=== PATIENT | male | born 1975 | race Hispanic/Latino ===

== ENCOUNTER 2018-11-10 07:16 | Emergency (ER) | payer SELFPAY ==
[2018-11-10] MEDS ORDERED: DEXAMETHASONE 4 MG/ML VIAL ONE (08:39)
[2018-11-10] MEDS ORDERED: KETOROLAC 30 MG/ML INJ ONE (08:39)
--- NOTE | 2018-11-10 08:46 | RAD REPORT ---
EXAM DESCRIPTION: CT - C Spine Wo Con - 11/10/2018 8:31 am CLINICAL HISTORY: PAIN Radiculopathy COMPARISON: No comparisons FINDINGS: The cervical vertebral body heights and disc spaces are maintained. No evidence of acute cervical spine fracture or subluxation. Prevertebral soft tissues are normal in thickness. IMPRESSION: Unremarkable examination. All CT scans are performed using dose optimization technique as appropriate and may include automated exposure control or mA/KV adjustment according to patient size.
--- NOTE | 2018-11-10 08:57 | ER ---
Nurse's Notes [facility] Name: Kelechi Gandhi Age: 43 yrs Sex: Male : 1975 Arrival Date: 11/10/2018 Time: 07:18 Bed 17 Private MD: Out, [facility] Diagnosis: Strain of muscle, fascia and tendon at neck level;Radiculopathy, cervicothoracic region;Type 2 diabetes mellitus Presentation: 11/10 07:24 Presenting complaint: Neck and upper back pain x 3 weeks, worse with cough and hb sneezing. Transition of care: patient was not received from another setting of care. Onset of symptoms is unknown. Risk Assessment: Do you want to hurt yourself or someone else? Patient reports no desire to harm self or others. Initial Sepsis Screen: Does the patient meet any 2 criteria? No. Patient's initial sepsis screen is negative. Does the patient have a suspected source of infection? No. Patient's initial sepsis screen is negative. Care prior to arrival: None. 07:24 Method Of Arrival: Ambulatory hb 07:24 Acuity: RUEL 4 hb Triage Assessment: 07:25 General: Appears in no apparent distress. Behavior is calm, cooperative. Pain: Pain hb currently is 9 out of 10 on a pain scale. EENT: No signs and/or symptoms were reported regarding the EENT system. Neuro: Level of Consciousness is awake, alert, obeys commands, Oriented to person, place, time, situation. Cardiovascular: Capillary refill < 3 seconds Patient's skin is warm and dry. Respiratory: Airway is patent Respiratory effort is even, unlabored, Respiratory pattern is regular, symmetrical, Breath sounds are clear bilaterally. GI: No signs and/or symptoms were reported involving the gastrointestinal system. : No signs and/or symptoms were reported regarding the genitourinary system. Derm: Skin is intact, is healthy with good turgor. Musculoskeletal: Circulation, motion, and sensation intact. Reports neck and upper back pain. Historical: - Allergies: 07:23 Lisinopril; hb - Home Meds: 07:23 Metoprolol Tartrate Oral [Active]; Metformin Oral [Active]; hb - PMHx: 07:23 Hypertension; High Cholesterol; Diabetes - NIDDM; hb - PSHx: 07:23 None; hb - Immunization history:: Adult Immunizations up to date. - Social history:: Smoking status: Patient uses tobacco products, denies chronic smoking, but will smoke occasionally. - Ebola Screening: : No symptoms or risks identified at this time. Screenin:23 Abuse screen: Denies threats or abuse. Denies injuries from another. Nutritional hb screening: No deficits noted. Tuberculosis screening: No symptoms or risk factors identified. Fall Risk None identified. Assessment: 07:38 General: see triage assessment. hb 08:30 Reassessment: Patient appears in no apparent distress at this time. No changes from hb previously documented assessment. Patient and/or family updated on plan of care and expected duration. Pain level reassessed. Patient is alert, oriented x 3, equal unlabored respirations, skin warm/dry/pink. Vital Signs: 07:25 BP 181 / 103; Pulse 74; Resp 16; Temp 98.5; Pulse Ox 100% on R/A; Pain 9/10; hb 07:26 Pulse Ox 98% on R/A; Weight 81.65 kg; Height 5 ft. 4 in. (162.56 cm); ss 08:30 BP 158 / 104; Pulse 74; Resp 18; Pulse Ox 98% on R/A; dh3 07:26 Body Mass Index 30.90 (81.65 kg, 162.56 cm) ED Course: 07:18 Patient arrived in ED. dl4 07:18 Out, [facility] is Private Physician. dl4 07:21 Cathleen Bui, RN is Primary Nurse. hb 07:23 Arm band placed on. EKG completed in triage. Results shown to MD. EKG completed in hb triage. Results shown to MD. 07:23 Patient has correct armband on for positive identification. Bed in low position. Call hb light in reach. Side rails up X 1. 07:25 Triage completed. hb 07:36 Uday Wolf MD is Attending Physician. wanda 08:31 CT C Spine In Process Unspecified. EDMS 09:21 No provider procedures requiring assistance completed. Patient did not have IV access hb during this emergency room visit. Administered Medications: 08:44 Drug: TORadol 60 mg Route: IM; Site: left deltoid; hb 09:30 Follow up: Response: No adverse reaction hb 08:44 Drug: Decadron 10 mg Route: IM; Site: right deltoid; hb 09:30 Follow up: Response: No adverse reaction hb Point of Care Testing: Blood Glucose: 08:36 Blood Glucose: 105 mg/dL; dh3 Ranges: Outcome: 08:57 Discharge ordered by . wanda 09:21 Discharged to home ambulatory, with family. hb 09:21 Condition: stable 09:21 Discharge instructions given to patient, Instructed on discharge instructions, follow up and referral plans. medication usage, Demonstrated understanding of instructions, follow-up care, medications, Prescriptions given X 4. 09:22 Patient left the ED. hb Signatures: Dispatcher [employer] EDMS Uday Wolf MD MD cha Smirch, Shelby, RN RN Cathleen Bui RN RN Lay Covarrubias 3 Shaheed Elmore dl4 Corrections: (The following items were deleted from the chart) 07:24 07:23 Social history: Smoking status: Patient/guardian denies using tobacco, hb hb 07:38 07:25 Musculoskeletal: Circulation, motion, and sensation intact. Reports low back pain hb hb
--- NOTE | 2018-11-10 08:57 | EDPHYS ---
Physician Documentation [facility] Name: Kelechi Gandhi Age: 43 yrs Sex: Male : 1975 Arrival Date: 11/10/2018 Time: 07:18 Bed 17 Private MD: Out, [facility] ED Physician Uday Wolf HPI: 11/10 08:16 This 43 yrs old Male presents to ER via Ambulatory with complaints of Back wanda Pain. 08:16 The patient presents with pain that is acute. wanda Historical: - Allergies: 07:23 Lisinopril; hb - Home Meds: 07:23 Metoprolol Tartrate Oral [Active]; Metformin Oral [Active]; hb - PMHx: 07:23 Hypertension; High Cholesterol; Diabetes - NIDDM; hb - PSHx: 07:23 None; hb - Immunization history:: Adult Immunizations up to date. - Social history:: Smoking status: Patient uses tobacco products, denies chronic smoking, but will smoke occasionally. - Ebola Screening: : No symptoms or risks identified at this time. ROS: 08:17 Constitutional: Negative for fever, chills, and weight loss, Eyes: Negative for injury, wanda pain, redness, and discharge, ENT: Negative for injury, pain, and discharge, Cardiovascular: Negative for chest pain, palpitations, and edema, Respiratory: Negative for shortness of breath, cough, wheezing, and pleuritic chest pain, Abdomen/GI: Negative for abdominal pain, nausea, vomiting, diarrhea, and constipation, Back: Negative for injury and pain, : Negative for injury, bleeding, discharge, and swelling, MS/Extremity: Negative for injury and deformity, Skin: Negative for injury, rash, and discoloration, Neuro: Negative for headache, weakness, numbness, tingling, and seizure, Psych: Negative for depression, anxiety, suicide ideation, homicidal ideation, and hallucinations, Allergy/Immunology: Negative for hives, rash, and allergies, Endocrine: Negative for neck swelling, polydipsia, polyuria, polyphagia, and marked weight changes, Hematologic/Lymphatic: Negative for swollen nodes, abnormal bleeding, and unusual bruising. 08:17 Neck: Positive for pain with movement, pain at rest. Exam: 08:17 Constitutional: This is a well developed, well nourished patient who is awake, alert, wanda and in no acute distress. Head/Face: Normocephalic, atraumatic. Eyes: Pupils equal round and reactive to light, extra-ocular motions intact. Lids and lashes normal. Conjunctiva and sclera are non-icteric and not injected. Cornea within normal limits. Periorbital areas with no swelling, redness, or edema. ENT: Nares patent. No nasal discharge, no septal abnormalities noted. Tympanic membranes are normal and external auditory canals are clear. Oropharynx with no redness, swelling, or masses, exudates, or evidence of obstruction, uvula midline. Mucous membranes moist. Chest/axilla: Normal chest wall appearance and motion. Nontender with no deformity. No lesions are appreciated. Cardiovascular: Regular rate and rhythm with a normal S1 and S2. No gallops, murmurs, or rubs. Normal PMI, no JVD. No pulse deficits. Respiratory: Lungs have equal breath sounds bilaterally, clear to auscultation and percussion. No rales, rhonchi or wheezes noted. No increased work of breathing, no retractions or nasal flaring. Abdomen/GI: Soft, non-tender, with normal bowel sounds. No distension or tympany. No guarding or rebound. No evidence of tenderness throughout. Back: No spinal tenderness. No costovertebral tenderness. Full range of motion. Male : Normal genitalia with no discharge or lesions. Skin: Warm, dry with normal turgor. Normal color with no rashes, no lesions, and no evidence of cellulitis. MS/ Extremity: Pulses equal, no cyanosis. Neurovascular intact. Full, normal range of motion. Neuro: Awake and alert, GCS 15, oriented to person, place, time, and situation. Cranial nerves II-XII grossly intact. Motor strength 5/5 in all extremities. Sensory grossly intact. Cerebellar exam normal. Normal gait. Psych: Awake, alert, with orientation to person, place and time. Behavior, mood, and affect are within normal limits. 08:17 Neck: External neck: is normal, C-spine: 08:17 Neck: C-spine: vertebral tenderness, that is mild, appreciated at C4, C5, C6 and C7. [facility] Vital Signs: 07:25 BP 181 / 103; Pulse 74; Resp 16; Temp 98.5; Pulse Ox 100% on R/A; Pain 9/10; hb 07:26 Pulse Ox 98% on R/A; Weight 81.65 kg; Height 5 ft. 4 in. (162.56 cm); ss 08:30 BP 158 / 104; Pulse 74; Resp 18; Pulse Ox 98% on R/A; dh3 07:26 Body Mass Index 30.90 (81.65 kg, 162.56 cm) ss MDM: 07:37 Patient medically screened. [facility] 08:17 Data reviewed: vital signs, nurses notes, lab test result(s), radiologic studies, CT wanda scan. 11/10 08:37 Order name: Glucose, Ancillary Testing; Complete Time: 08:55 EDMS 11/10 08:16 Order name: CT C Spine; Complete Time: 08:55 wanda 11/10 08:16 Order name: Blood Glucose Level; Complete Time: 08:36 [facility] Administered Medications: 08:44 Drug: TORadol 60 mg Route: IM; Site: left deltoid; hb 09:30 Follow up: Response: No adverse reaction hb 08:44 Drug: Decadron 10 mg Route: IM; Site: right deltoid; hb 09:30 Follow up: Response: No adverse reaction hb Point of Care Testing: Blood Glucose: 08:36 Blood Glucose: 105 mg/dL; dh3 Ranges: Critical Glucose Levels:Adult <50 mg/dl or >400 mg/dl <40 mg/dl or >180 mg/dl Disposition: 11/10/18 08:57 Discharged to Home. Impression: Strain of muscle, fascia and tendon at neck level, Radiculopathy, cervicothoracic region, Type 2 diabetes mellitus. - Condition is Stable. - Discharge Instructions: Cervical Radiculopathy, Muscle Strain, Cervical Sprain, [id number], Cervical Radiculopathy, [id number], Radicular Pain. - Prescriptions for Ibuprofen 600 mg Oral Tablet - take 1 tablet by ORAL route every 8 hours As needed take with food; 21 tablet. Tylenol- Codeine #3 300-30 mg Oral Tablet - take 2 tablet by ORAL route every 6 hours As needed; 30 tablet. Medrol (Dirk) 4 mg Oral Tablets, Dose Pack - take 1 tablet by ORAL route as directed - follow package instructions; 1 packet. Cyclobenzaprine 5 mg Oral Tablet - take 1 tablet by ORAL route 3 times per day As needed; 15 tablet. - Medication Reconciliation Form, Thank You Letter, Antibiotic Education, Prescription Opioid Use, Work release form form. - Follow up: Private Physician; When: 2 - 3 days; Reason: Recheck today's complaints, Continuance of care, Re-evaluation by your physician. - Problem is new. - Symptoms have improved. Signatures: Dispatcher [employer] EDUday Roberts MD MD cha Baxter, Heather, RN RN hb Corrections: (The following items were deleted from the chart) 07:24 07:23 Social history: Smoking status: Patient/guardian denies using tobacco, hb hb 09:22 08:57 11/10/2018 08:57 Discharged to Home. Impression: Strain of muscle, fascia and hb tendon at neck level; Radiculopathy, cervicothoracic region; Type 2 diabetes mellitus. Condition is Stable. Discharge Instructions: Cervical Radiculopathy, Muscle Strain, Cervical Sprain, [id number], Cervical Radiculopathy, [id number], Radicular Pain. Prescriptions for Ibuprofen 600 mg Oral Tablet - take 1 tablet by ORAL route every 8 hours As needed take with food; 21 tablet, Tylenol-Codeine #3 300-30 mg Oral Tablet - take 2 tablet by ORAL route every 6 hours As needed; 30 tablet, Medrol (Dirk) 4 mg Oral Tablets, Dose Pack - take 1 tablet by ORAL route as directed - follow package instructions; 1 packet, Cyclobenzaprine 5 mg Oral Tablet - take 1 tablet by ORAL route 3 times per day As needed; 15 tablet. and Forms are Medication Reconciliation Form, Thank You Letter, Antibiotic Education, Prescription Opioid Use. Follow up: Private Physician; When: 2 - 3 days; Reason: Recheck today's complaints, Continuance of care, Re-evaluation by your physician. Problem is new. Symptoms have improved. wanda
== END 2018-11-10 09:22 | disposition home or self-care (01) ==
LOC: ER 07:16
DX: S16.1XXA Strain of muscle, fascia and tendon at neck level, initial encounter (principal); X58.XXXA Exposure to other specified factors, initial encounter; M54.13 Radiculopathy, cervicothoracic region; E11.9 Type 2 diabetes mellitus without complications; Z88.8 Allergy status to other drugs, medicaments and biological substances
CPT/HCPCS: 72125; 82962; 96372; 99283

== ENCOUNTER 2021-03-05 12:45 | Emergency (ER) | payer SELFPAY ==
--- OUTSIDE RECORDS SUMMARY | 2021-03-05 12:58 | XMS REPORT | Continuity of Care Document ---
:1975 Author Organization [facility] t Address [address] [place] [address] Care Team Providers Name Role Phone Arnold YBARRA, T Attending Clinician Fritz YBARRA Attending Clinician Ivonne YBARRA, J Admitting Clinician Problems This patient has no known problems. Allergies, Adverse Reactions, Alerts This patient has no known allergies or adverse reactions. Medications This patient has no known medications. Procedures This patient has no known procedures. Encounters Start End Encounter Admission Attending Care Care Encounter Source Date/Time Date/Time Type Type Clinicians Facility Department ID 2021-02-26 2021-02-26 Emergency Arnold, TRAUMA [id number] 17:14:00 17:50:00 Alanna [facility] [id number] 2021-02-26 2021-02-26 Emergency Fritz [facility] [id number] 12:54:00 16:21:00 Raymundo Castro [id number] [place] [id number] [place] [id number] Results This patient has no known results.
--- NOTE | 2021-03-05 13:08 | RAD REPORT ---
EXAM DESCRIPTION: CT - Ct Stroke Brain Wo Cont - 03/05/2021 12:59 pm CLINICAL HISTORY: Numbness left finger and thumb COMPARISON: None. TECHNIQUE: Axial 5 mm thick images of the head were obtained without IV contrast. All CT scans are performed using dose optimization technique as appropriate and may include automated exposure control or mA/KV adjustment according to patient size. FINDINGS: No acute intracranial hemorrhage. No mass effect or midline shift. No acute large vascular territory infarct are identified. No mastoid effusion. Paranasal sinuses are well aerated. IMPRESSION: No acute intracranial abnormality. Discussed with Uday Mcmillan at 1300 on 03/05/21.
[2021-03-05 13:12] LABS: Absolute Lymphocytes (CBC) 2.3 K/uL (0.7-4.9); Basophils % 0.4 % (0-1.3); Hematocrit 37.9 % (39.6-49.0); Lymphocytes % 28.3 % (15.3-44.8); MPV 8.4 fL (7.6-11.3)
[2021-03-05 13:16] LABS: Protime INR 1.02
[2021-03-05] MEDS ORDERED: FOLIC ACID 5 MG/ML VIAL ONE (13:25)
[2021-03-05] MEDS ORDERED: NA CHLORIDE 0.9% 1,000 ML ONE (13:26)
--- NOTE | 2021-03-05 13:28 | RAD REPORT ---
EXAM DESCRIPTION: RAD - Chest Single View - 03/05/2021 1:23 pm CLINICAL HISTORY: Cough COMPARISON: None. TECHNIQUE: AP portable chest image was obtained . FINDINGS: Lungs are clear. Heart and vasculature are normal. No measurable pleural effusion and no p neumothorax. No gross bony abnormality seen. IMPRESSION: No acute cardiopulmonary process.
[2021-03-05 13:37] LABS: ALT/SGPT 32 U/L (12-78); AST/SGOT 19 U/L (15-37); Albumin 4.1 g/dL (3.4-5.0); Alkaline Phosphatase 70 U/L (45-117); BUN Blood Urea Nitrogen 12 mg/dL (7-18); Bicarbonate 24 mmol/L (21-32); Bilirubin Direct < 0.1 mg/dL (0-0.2); Bilirubin Total 0.4 mg/dL (0.2-1.0); Glucose Level 107 mg/dL (74-106); Magnesium 2.4 mg/dL (1.8-2.4); NT PRO-BNP 37 pg/mL (<125); Potassium 4.1 mmol/L (3.5-5.1); Sodium Level 136 mmol/L (136-145); Troponin (Emerg Dept Use Only) < 0.02 ng/mL (0.0-0.045)
[2021-03-05] MEDS ORDERED: ASPIRIN 81 MG CHEWABLE TABLET ONE (13:44)
--- NOTE | 2021-03-05 13:52 | RAD REPORT ---
CLINICAL HISTORY: TIA Pain, TIA COMPARISON: None TECHNIQUE: CT angiogram of the head was obtained. All CT scans are performed using dose optimization technique as appropriate and may include automated exposure control or mA/KV adjustment according to patient size. FINDINGS: The basilar, internal carotid, anterior cerebral, middle cerebral and posterior cerebral a rteries are normal caliber. An aneurysm is not seen. A significant stenosis is not noted. IMPRESSION: Unremarkable CT angiogram head. EXAM DESCRIPTION: CTHead angio03/05/2021 1:38 pm CTA head
--- NOTE | 2021-03-05 13:55 | RAD REPORT ---
EXAM DESCRIPTION: CT - Neck Angio - 03/05/2021 1:38 pm CLINICAL HISTORY: CVA COMPARISON: C Spine Wo Con dated 11/10/2018 TECHNIQUE: CT angiography of the neck vessels was performed with MIPs. All CT scans are performed using dose optimization technique as appropriate and may include automated exposure control or mA/KV adjustment according to patient size. FINDINGS: A left aortic arch is identified with normal three vessel configuration of the great vesse ls. No significant flow abnormality is seen of the common carotid bilaterally. No significant stenosis is identified involving the cervical segments of both internal carotid arteri es. Normal flow is seen within both vertebral arteries. Stranding is present in the left supraclavicular region and base of the neck. IMPRESSION: No significant flow abnormality of the neck vessels is identified.
--- NOTE | 2021-03-05 14:06 | RAD REPORT ---
EXAM DESCRIPTION: MRI - Brain Wo Cont - 03/05/2021 1:59 pm CLINICAL HISTORY: DIZZINESS, right hand numbness, numbness of the tongue COMPARISON: Ct Stroke Brain Wo Cont dated 03/05/2021 TECHNIQUE: Sagittal T1-weighted images were obtained along with axial PD, heavily T2-weighted and T2 -FLAIR images. Axial DWI and ADC mapping sequences were also obtained along with coronal heavily T2-w eighted images. Coronal T2 hemo sequence obtained. FINDINGS: No intracranial hemorrhage, mass or acute infarction. There is no edema or shift of midlin e structures. No extra-axial fluid collections. Wang-matter/white matter junction is preserved. Signa l voids are seen as a normal finding in the major intracranial vessels. Ventricles are normal. There are no atrophy or chronic ischemic changes identifiable. No evidence for demyelinization or other kelly spicious brain parenchymal process. No globe or orbital content abnormalities. No sella or supra sella abnormality. Mastoid air cells and paranasal sinuses are clear. IMPRESSION: Negative non-contrast MRI of the Brain.
[2021-03-05 14:12] LABS: Urine Blood Negative (Negative); Urine Glucose Negative (Negative); Urine Protein Negative (Negative); Urine pH 6.5 (5.0-7.0)
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
--- NOTE | 2021-03-05 14:43 | EDPHYS ---
Physician Documentation [facility] Name: Kelechi Gandhi Age: 45 yrs Sex: Male : 1975 Arrival Date: 03/05/2021 Time: 12:46 Bed 3 Private MD: ED Physician Uday Wolf HPI: 03/05 13:19 This 45 yrs old Male presents to ER via Wheelchair with complaints of Numbness wanda - fingers/tongue, Dizziness. 13:19 The patient's problem is reported as paresthesias, in right side of face, in left side wanda of face. Onset: The symptoms/episode began/occurred just prior to arrival. Duration: The episode is continuous. Context: the episode(s) was witnessed, by family. The symptoms are alleviated by nothing. The symptoms are aggravated by nothing. Associated signs and symptoms: The patient has no apparent associated signs or symptoms. Severity of symptoms: At their worst the symptoms were mild in the emergency department the symptoms are unchanged. Patient's baseline: Neuro:. The patient has not experienced similar symptoms in the past. Historical: - Allergies: 13:00 Lisinopril; sv - PMHx: 13:00 Diabetes - NIDDM; High Cholesterol; Hypertension; sv - Family history:: not pertinent. ROS: 13:19 Constitutional: Negative for fever, chills, and weight loss, Eyes: Negative for injury, wanda pain, redness, and discharge, ENT: Negative for injury, pain, and discharge, Neck: Negative for injury, pain, and swelling, Cardiovascular: Negative for chest pain, palpitations, and edema, Respiratory: Negative for shortness of breath, cough, wheezing, and pleuritic chest pain, Abdomen/GI: Negative for abdominal pain, nausea, vomiting, diarrhea, and constipation, Back: Negative for injury and pain, : Negative for injury, bleeding, discharge, and swelling, MS/Extremity: Negative for injury and deformity, Skin: Negative for injury, rash, and discoloration, Psych: Negative for depression, anxiety, suicide ideation, homicidal ideation, and hallucinations, Allergy/Immunology: Negative for hives, rash, and allergies, Endocrine: Negative for neck swelling, polydipsia, polyuria, polyphagia, and marked weight changes, Hematologic/Lymphatic: Negative for swollen nodes, abnormal bleeding, and unusual bruising. 13:19 Neuro: Negative for altered mental status, dizziness, gait disturbance, headache, hearing loss, loss of consciousness, numbness, seizure activity, speech changes, syncope, near syncope, tingling, tinnitus, tremor, visual changes, weakness, acute changes. Exam: 13:19 Radiologist reports: NEGATIVE wanda 13:19 Constitutional: This is a well developed, well nourished patient who is awake, alert, and in no acute distress. Head/Face: Normocephalic, atraumatic. Eyes: Pupils equal round and reactive to light, extra-ocular motions intact. Lids and lashes normal. Conjunctiva and sclera are non-icteric and not injected. Cornea within normal limits. Periorbital areas with no swelling, redness, or edema. ENT: Nares patent. No nasal discharge, no septal abnormalities noted. Tympanic membranes are normal and external auditory canals are clear. Oropharynx with no redness, swelling, or masses, exudates, or evidence of obstruction, uvula midline. Mucous membranes moist. Neck: Trachea midline, no thyromegaly or masses palpated, and no cervical lymphadenopathy. Supple, full range of motion without nuchal rigidity, or vertebral point tenderness. No Meningismus. Chest/axilla: Normal chest wall appearance and motion. Nontender with no deformity. No lesions are appreciated. Cardiovascular: Regular rate and rhythm with a normal S1 and S2. No gallops, murmurs, or rubs. Normal PMI, no JVD. No pulse deficits. Respiratory: Lungs have equal breath sounds bilaterally, clear to auscultation and percussion. No rales, rhonchi or wheezes noted. No increased work of breathing, no retractions or nasal flaring. Abdomen/GI: Soft, non-tender, with normal bowel sounds. No distension or tympany. No guarding or rebound. No evidence of tenderness throughout. Back: No spinal tenderness. No costovertebral tenderness. Full range of motion. Male : Normal genitalia with no discharge or lesions. Skin: Warm, dry with normal turgor. Normal color with no rashes, no lesions, and no evidence of cellulitis. MS/ Extremity: Pulses equal, no cyanosis. Neurovascular intact. Full, normal range of motion. Neuro: Awake and alert, GCS 15, oriented to person, place, time, and situation. Cranial nerves II-XII grossly intact. Motor strength 5/5 in all extremities. Sensory grossly intact. Cerebellar exam normal. Normal gait. Psych: Awake, alert, with orientation to person, place and time. Behavior, mood, and affect are within normal limits. 13:19 ECG was reviewed by the Attending Physician. Vital Signs: 12:58 Weight 83.91 kg; Height 5 ft. 6 in. (167.64 cm); sv 13:00 BP 172 / 86; Pulse 65; Resp 16 S; Temp 98.3(TE); Pulse Ox 97% on R/A; aa5 14:15 BP 160 / 78; Pulse 63; Resp 16 S; Pulse Ox 98% on R/A; aa5 12:58 Body Mass Index 29.86 (83.91 kg, 167.64 cm) sv NIH Stroke Scale Scores: 12:55 NIHSS Score: 0 aa5 MDM: 12:50 Patient medically screened. wanda 13:24 Differential diagnosis: CVA. Data reviewed: vital signs, nurses notes, lab test wanda result(s), EKG, radiologic studies, CT scan, doppler, MRI. Data interpreted: equipment monitor phototypesetting: rate is 60 beats/min, Pulse oximetry: on room air is 99 %. Test interpretation: by ED physician or midlevel provider: ECG, plain radiologic studies. Counseling: I had a detailed discussion with the patient and/or guardian regarding: the historical points, exam findings, and any diagnostic results supporting the discharge/admit diagnosis, lab results, radiology results. 03/05 12:53 Order name: Basic Metabolic Panel; Complete Time: 14:13 [facility] 03/05 12:53 Order name: CBC with Diff; Complete Time: 14:13 [facility] 03/05 12:53 Order name: LFT's; Complete Time: 14:13 [facility] 03/05 12:53 Order name: Magnesium; Complete Time: 14:13 [facility] 03/05 12:53 Order name: NT PRO-BNP; Complete Time: 14:13 [facility] 03/05 12:53 Order name: PT-INR; Complete Time: 14:13 [facility] 03/05 12:53 Order name: Troponin (emerg Dept Use Only); Complete Time: 14:13 [facility] 03/05 12:53 Order name: XRAY Chest (1 view); Complete Time: 14:13 [facility] 03/05 12:53 Order name: CT Stroke Brain w/o Contrast; Complete Time: 14:13 [facility] 03/05 12:53 Order name: Urine Culture [facility] 03/05 13:12 Order name: Glucose, Ancillary Testing; Complete Time: 14:13 EDMS 03/05 13:18 Order name: CT Neck Angio; Complete Time: 14:13 [facility] 03/05 14:12 Order name: Urine Dipstick-Ancillary; Complete Time: 14:13 EDMS 03/05 12:53 Order name: EKG; Complete Time: 12:54 [facility] 03/05 12:53 Order name: Cardiac monitoring; Complete Time: 13:16 [facility] 03/05 12:53 Order name: EKG - Nurse/Tech; Complete Time: 13:29 [facility] 03/05 12:53 Order name: IV Saline Lock; Complete Time: 13:16 [facility] 03/05 12:53 Order name: Labs collected and sent; Complete Time: 13:16 [facility] 03/05 12:53 Order name: O2 Per Protocol; Complete Time: 13:16 [facility] 03/05 12:53 Order name: O2 Sat Monitoring; Complete Time: 13:16 [facility] 03/05 13:18 Order name: CT Head Angio; Complete Time: 14:13 [facility] 03/05 13:52 Order name: Brain Wo Cont; Complete Time: 14:13 EDMS EC:19 Rate is 60 beats/min. Rhythm is regular. QRS [place] is Normal. CA interval is normal. QRS wanda interval is normal. QT interval is normal. No Q waves. T waves are Normal. No ST changes noted. Clinical impression: Normal ECG and No evidence of ischemia. Interpreted by me. Reviewed by me. Administered Medications: 13:00 Drug: NS 0.9% 1000 ml Route: IV; Rate: 1 bolus; Site: right antecubital; bp 14:00 Follow up: IV Status: Completed infusion; IV Intake: 1000ml aa5 13:00 Drug: foLIC Acid 1 mg Route: IVPB; Site: right antecubital; bp 13:29 Drug: Aspirin Chewable Tablet 324 mg Route: PO; aa5 14:10 Follow up: Response: No adverse reaction aa5 Point of Care Testing: Blood Glucose: 13:05 Blood Glucose: 113 mg/dL; aa5 Ranges: Critical Glucose Levels:Adult <50 mg/dl or >400 mg/dl <40 mg/dl or >180 mg/dl Disposition Summary: 03/05/21 14:42 Discharge Ordered Location: Home wanda Problem: new wanda Symptoms: have improved wanda Condition: Stable wanda Diagnosis - Hyperventilation wanda - Weakness wanda - Type 2 diabetes mellitus with hyperglycemia wanda Followup: wanda - With: Private Physician - When: 2 - 3 days - Reason: Recheck today's complaints, Continuance of care, Re-evaluation by your physician Followup: wanda - With: Federico Perez MD - When: 2 - 3 days - Reason: Recheck today's complaints, Continuance of care, Re-evaluation by your physician Discharge Instructions: - Discharge Summary Sheet wanda - Hyperventilation wanda - Weakness wanda - Fatigue wanda - Weakness, [id number] wanda - Aspirin and Your Heart wanda Forms: - Medication Reconciliation Form wanda - Thank You Letter wanda - Antibiotic Education wanda - Prescription Opioid Use wanda Prescriptions: - Folic Acid 1 mg Oral Tablet - take 1 tablet by ORAL route once daily; 30 tablet; Refills: 0, Product wanda Selection Permitted NIH Stroke Scale - NIH Stroke Score Date: 03/05/2021 Time: 12:55 Total Score = 0 1a. Level of Consciousness (LOC) - 0(Alert) 1b. Level of Consciousness (LOC) (Month \T\ Age) - 0(Both) 1c. LOC Commands (Open \T\ Closes Eyes/Escrow Agent) - 0(Both) 2. Best Gaze (Lateral Gaze Paresis) - 0(Normal) 3. Visual Field Loss - 0(No visual loss) 4. Facial Palsy - 0(Normal) 5a. Left Arm: Motor (10-second hold) - 0(No drift) 5b. Right Arm: Motor (10-second hold) - 0(No drift) 6a. Left Leg: Motor (5-second hold - always test supine) - 0(No drift) 6b. Right Leg: Motor (5-second hold - always test supine) - 0(No drift) 7. Limb Ataxia (finger/nose \T\ heel/nathan - test with eyes open) - 0(Absent) 8. Sensory Loss (pinprick arms/legs/face) - 0(Normal) 9. Best Language: Aphasia (description/naming/reading) - 0(No aphasia) 10. Dysarthria (speech clarity - read or repeat words) - 0(Normal) 11. Extinction and Inattention (visual/tactile/auditory/spatial/personal) - 0(No abnormality) Initials: aa5 Signatures: Dispatcher [employer] EDEugenie Galvan, RN RN Uday Peterson MD MD cha Calderon, Audri, RN RN aa5 Porfirio Galeas, RN RN bp Corrections: (The following items were deleted from the chart) 13:52 13:19 MR STROKE PROTOCOL+MRI.RAD.BRZ ordered. EDMS EDMS
[2021-03-05 15:00] VITALS: BP 172/86; TEMP 98.3; O2SAT 97
--- NOTE | 2021-03-06 13:01 | EKG ---
Test Date: 2021-03-05 Test Time: 13:19:25 Registered Dental Assistant Rda: MANJEET MEASUREMENT RESULTS: Intervals: Rate: 60 NC: 114 QRSD: 102 QT: 438 QTc: 438 Morgan: P: 43 NC: 114 QRS: 5 T: 18 INTERPRETIVE STATEMENTS: Normal sinus rhythm Incomplete right bundle branch block Borderline ECG Compared to ECG 05/12/2016 11:34:19 Incomplete right bundle-branch block now present Left ventricular hypertrophy no longer present Electronically Signed On 03-06-21 12:59:34 CDT by Duc Meneses
== END 2021-03-05 14:55 | disposition home or self-care (01) ==
LOC: ER 12:45
DX: R06.4 Hyperventilation (principal); E11.65 Type 2 diabetes mellitus with hyperglycemia; I10 Essential (primary) hypertension; Z88.8 Allergy status to other drugs, medicaments and biological substances
CPT/HCPCS: 36415; 70450; 70496; 70498; 70551; 71045; 80048; 80076; 81003; 82947; 83735; 83880; 84484; 85025; 85610; 87086; 87088; 93005; 96361; 96374; 99284; J7030; Q9967

== ENCOUNTER 2024-07-08 08:09 | Emergency (ER) | payer SELFPAY ==
--- OUTSIDE RECORDS SUMMARY | 2024-07-08 08:14 | XMS REPORT | Continuity of Care Document ---
Author Name Unknown Address [address] [facility] [address] [place] [address] [facility] thconnect Address [address] [facility] 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 Name Role Phone PCP, NO Primary Care Physician Unavailab MARY BETH Burris Attending Clinician Unavailab jose Barrett MD, Alanna Castillo Attending Clinician Carmen Land MD Attending Clinician Evelio Hu MD Attending Clinician [phone] EVELIO HU Attending Clinician Unavailable Carmen Land MD Admitting Clinician [phone] CARMEN LAND Admitting Clinician Unavailab jose Allergies, Adverse Reactions, Alerts Allergy Name Allergy Type Status Severity Reaction(s) Onset Date Inactive Date Treating Clinician Comments Source lisinopr il Propensi ty to adverse reaction to drug Active 2-19 00:00: 00 Marciano Matos n Propensi ty to adverse reaction to drug Active 6-24 00:00: 00 Marciano Matos Lisinopr il - Oral Propensi ty to adverse reaction to drug Active 3-05 00:00: 00 Marciano Matos Lisinopr il Propensi ty to adverse reaction to drug Inactiv e 2-24 00:00: 00 Marciano Matos NO KNOWN ALLERGIE S Drug Class Active [facility] Social History Social Habit Start Date Stop Date Quantity Comments Source Sex Assigned At 1975 00:00:00 1975 00:00:00 [facility] Smoking Status Start Date Stop Date Source Unknown [facility] Ordered Medication Name Filled Medication Name Start Date Stop Date Current Medication? Ordering Clinician Indication Dosage Frequency Signature (SIG) Comments Components Source nystatin 100,000 unit/gram topical cream 2023-08 00:00: 00 Yes 1unit/g tess Marciano Matos sildenafil 50 mg tablet 2023-08 00:00: 00 Yes 12mg Marciaon Matos atorvastati n 20 mg tablet 05-20 00:00: 00 Yes mg Marciano Matos metformin 500 mg tablet 05-20 00:00: 00 Yes 1mg Marciano Matos metoprolol tartrate 100 mg tablet 05-20 00:00: 00 Yes 1mg Marciano Matos fenofibrate 160 mg tablet 05-20 00:00: 00 Yes 1mg Marciano Matos Bromfed DM 2 mg-30 mg-10 mg/5 mL oral syrup 05-20 00:00: 00 Yes 10mg/5 mL Marciano Matos metformin 500 mg tablet 02-08 00:00: 00 Yes 1mg Marciano Matos metoprolol tartrate 100 mg tablet 02-08 00:00: 00 Yes 1mg Marciano Matos fenofibrate 160 mg tablet 02-08 00:00: 00 Yes 1mg Marciano Matos atorvastati n 20 mg tablet 02-08 00:00: 00 Yes 1mg Marciano Matos atorvastati n 20 mg tablet 10-28 00:00: 00 Yes 1mg Marciano Matos TAKE 1 TABLET BY MOUTH DAILY 10-19 00:00: 00 Yes 160 Marciano Matos TAKE 1 TABLET DAILY. 10-19 00:00: 00 Yes 500 Marciano Matos TAKE 1 TABLET BY MOUTH DAILY 10-19 00:00: 00 Yes 100 Marciano Matso TAKE 1 TABLET BY MOUTH DAILY 09-28 00:00: 00 12-27 00:00 :00 No 160 Marciano Matos TAKE 1 TABLET DAILY. 09-28 00:00: 00 12-27 00:00 :00 No 500 Marciano F Carlo TAKE 1 TABLET BY MOUTH DAILY 09-28 00:00: 00 12-27 00:00 :00 No 100 Marciano F Carlo TAKE 1 TABLET BY MOUTH DAILY 2022-08 0 00:00: 00 12-27 00:00 :00 No 100 Marciano F Carlo TAKE 1 TABLET BY MOUTH DAILY 2022-08 0 00:00: 00 12-27 00:00 :00 No 20 Marciano F Carlo TAKE 1 TABLET DAILY. 03-23 00:00: 00 12-27 00:00 :00 No 20 Marciano F Carlo TAKE 1 TABLET BY MOUTH DAILY 03-20 00:00: 00 12-27 00:00 :00 No 100 Marciano F Carlo TAKE 1 TABLET DAILY. 03-20 00:00: 00 12-27 00:00 :00 No 500 Marciano F Carlo TAKE 1 TABLET BY MOUTH DAILY 03-20 00:00: 00 12-27 00:00 :00 No 160 Marciano F Carlo INSTILL 5 DROPS INTO LEFT EAR TWICE DAILY. 6-24 00:00: 00 12-27 00:00 :00 No 3 Marciano F Carlo TAKE 1 TABLET BY MOUTH DAILY 0 5- 00:00: 00 12-27 00:00 :00 No 100 Marciano F Carlo TAKE 1 TABLET BY MOUTH DAILY 0 5-20 00:00: 00 12-27 00:00 :00 No 500 Marciano F Carlo TAKE 1 TABLET BY MOUTH DAILY 0 5-20 00:00: 00 12-27 00:00 :00 No 160 Marciano F Carlo TAKE 1 TABLET BY MOUTH DAILY 0 2-24 00:00: 00 12-27 00:00 :00 No 500 Marciano F Carlo TAKE 1 TABLET BY MOUTH DAILY 0 2-24 00:00: 00 12-27 00:00 :00 No 100 Marciano F Carlo TAKE 1 TABLET BY MOUTH DAILY 2023-0 2-24 00:00: 00 12-27 00:00 :00 No 160 Marciano Alva Matos TAKE 1 TABLET DAILY. 2021-08 2-19 00:00: 00 12-27 00:00 :00 No 6unit Marciano Matos TAKE 1 TABLET DAILY. 8-11 00:00: 00 Yes 6unit Marciano Alva Matos fenofibrate 160 mg tablet 6-24 00:00: 00 Yes 1mg Marciano Alva Matos metformin 500 mg tablet -24 00:00: 00 Yes 1mg Marciano F Carlo Dose Unknown 6-24 00:00: 00 Yes Marciano F Carlo fenofibrate 160 mg tablet 3-08 00:00: 00 Yes 1mg Marciano F Carlo Dose Unknown 3-08 00:00: 00 Yes Marciano F Carlo Dose Unknown 0 3-08 00:00: 00 Yes Marciano F Carlo Dose Unknown 0 3-08 00:00: 00 Yes Marciano F Carlo Dose Unknown 0 3-08 00:00: 00 Yes Marciano F Carlo Dose Unknown 0 3-05 00:00: 00 Yes Marciano F Carlo Dose Unknown 0 3-05 00:00: 00 Yes Marciano F Carlo Dose Unknown 0 2-22 00:00: 00 Yes Marciano F Carlo Dose Unknown 0 2-22 00:00: 00 Yes Marciano F Carlo Dose Unknown 0 2-22 00:00: 00 Yes Marciano F Carlo Dose Unknown 2020-08 0-21 00:00: 00 Yes Marciano F Carlo Dose Unknown 2020-08 0-21 00:00: 00 Yes Marciano F Carlo Dose Unknown 2020-08 0-21 00:00: 00 Yes Marciano F Carlo Dose Unknown 7- 00:00: 00 Yes 6 Marciano F Carlo gabapentin 300 mg capsule - 00:00: 00 Yes 1mg Marciano Alva Matos indomethaci n 50 mg capsule 02-28 00:00: 00 Yes 1mg Marciano Alva Matos morpHINE injection 6 mg 02-26 20:30: 00 02-26 19:30 :00 No 6mg 6 mg, Slow IV Push, ONCE, 1 dose, 02/26/21 at 1530, [facility] ondansetron (ZOFRAN (PF)) injection 4 mg 02-26 19:15: 00 02-26 18:09 :00 No 4mg 4 mg, Slow IV Push, ONCE, 1 dose, 02/26/21 at 1415, [facility] FENTanyl PF (SUBLIMAZE (PF)) injection 100 mcg 02-26 19:15: 00 02-26 18:09 :00 No 100ug 100 mcg, Slow IV Push, ONCE, 1 dose, 02/26/21 at 1415, STAT [facility] iopamidol (ISOVUE 370-500 mL) injection 120 mL 02-26 19:00: 00 02-26 18:35 :00 No [id number] 120mL 120 mL, Intravenou s, ONCE, 1 dose, 02/26/21 at 1400, Routine [facility] NaCl 0.9% (NS) bolus infusion 1,000 mL 02-26 18:08: 00 02-26 21:21 :00 No 1000mL at 999 mL/hr, 1,000 mL, IV Piggyback, ONCE, 1 dose, 02/26/21 at 1315, STAT [facility] cyclobenzap rine 5 mg tablet 02-26 00:00: 00 03-06 04:59 :00 No [id number] 5mg Take 1 tablet by mouth 3 (three) times daily for 7 days. [facility] metoprolol tartrate 100 mg tablet 02-12 00:00: 00 Yes 1mg Marciano Matos fenofibrate 160 mg tablet 02-12 00:00: 00 Yes 1mg Marciano Matos Dose Unknown 02-12 00:00: 00 Yes Marciano Matos metoprolol tartrate 100 mg tablet 4-23 00:00: 00 Yes 1mg Marciano Matos metformin 500 mg tablet 10-11 00:00: 00 Yes 1mg Marciano Matos fenofibrate 160 mg tablet 2 00:00: 00 Yes 1mg Marciano Matos metoprolol tartrate 100 mg tablet 10-09 00:00: 00 Yes 1mg Marciano Matos metformin 500 mg tablet 05-21 00:00: 00 Yes 1mg Marciano Matos metoprolol tartrate 100 mg tablet 05-21 00:00: 00 Yes 1mg Marciano Matos metformin 500 mg tablet 01-20 00:00: 00 Yes 1mg Marciano Matos metoprolol tartrate 100 mg tablet 01-20 00:00: 00 Yes 1mg Marciano Matos metoprolol tartrate 100 mg tablet 01-16 00:00: 00 Yes 1mg Marciano Matos metformin 500 mg tablet 01-16 00:00: 00 Yes 1mg Marciano Matos diclofenac 1 % topical gel 09-27 00:00: 00 Yes 1% Marciano Matos clotrimazol e-betametha sone 1 %-0.05 % topical cream 09-27 00:00: 00 Yes 1% Marciano Matos metformin 500 mg tablet 09-27 00:00: 00 Yes 1mg Marciano Matos metoprolol tartrate 100 mg tablet 09-27 00:00: 00 Yes 1mg Marciano Mtaos clotrimazol e 1 % topical cream 05-24 00:00: 00 Yes 1% Marciano Matos metoprolol tartrate 100 mg tablet 05-24 00:00: 00 Yes 1mg Marciano Matos metformin 500 mg tablet 05-24 00:00: 00 Yes 1mg Marciano Matos metoprolol tartrate 100 mg tablet 05-12 00:00: 00 Yes 1mg Marciano Matos metformin 500 mg tablet 05-12 00:00: 00 Yes 1mg Marciano Matos metformin 500 mg tablet 04-04 00:00: 00 Yes 1mg Marciano Matos metoprolol tartrate 100 mg tablet 04-04 00:00: 00 Yes 1mg Marciano Matos metformin 500 mg tablet 01-22 00:00: 00 Yes 1mg Marciano Matos metoprolol tartrate 100 mg tablet 01-22 00:00: 00 Yes 1mg Marciano Matos clotrimazol e-betametha sone 1 %-0.05 % topical cream 10-21 00:00: 00 Yes 1% Marciano Matos nystatin 100,000 unit/gram topical cream 10-05 00:00: 00 Yes 1unit/g tess Marciano Matos metformin 500 mg tablet 09-29 00:00: 00 Yes 1mg Marciano Matos metoprolol tartrate 100 mg tablet 09-29 00:00: 00 Yes 1mg Marciano Matos metformin 500 mg tablet 2017-08 00:00: 00 Yes 1mg Marciano Matos metoprolol tartrate 100 mg tablet 2017-08 00:00: 00 Yes 1mg Marciano Matos metoprolol tartrate 100 mg tablet 04-14 00:00: 00 Yes 1mg Marciano Matos metformin 500 mg tablet 04-14 00:00: 00 Yes 1mg Marciano Matos metformin 500 mg tablet 10-27 00:00: 00 Yes 1mg Marciano Matos metoprolol tartrate 100 mg tablet 10-27 00:00: 00 Yes 1mg Marciano Matos paroxetine 20 mg tablet 10-27 00:00: 00 Yes 1mg Marciano Matos fenofibrate 160 mg tablet 10-27 00:00: 00 Yes 1mg Marciano Matos metoprolol tartrate 100 mg tablet 10-20 00:00: 00 Yes 1mg Marciano Matos metformin 500 mg tablet 10-20 00:00: 00 Yes 1mg Marciano Matos metformin 500 mg tablet 2016-08 00:00: 00 Yes 1mg Marciano Matos metoprolol tartrate 100 mg tablet 2016-08 00:00: 00 Yes 1mg Marciano Matos Tamiflu 75 mg capsule 2016-08 00:00: 00 Yes 1mg Marciano Matos metformin 500 mg tablet 05-19 00:00: 00 Yes 1mg Marciano Matos metoprolol tartrate 100 mg tablet 05-18 00:00: 00 Yes 1mg Marciano Matos metformin 500 mg tablet 10-27 00:00: 00 Yes 1mg Marciano Matos Viagra 25 mg tablet 09-20 00:00: 00 Yes 1mg Marciano Matos Tricor 48 mg tablet 09-19 00:00: 00 Yes 2mg Marciano Matos glimepiride 2 mg tablet 09-19 00:00: 00 Yes 1mg Marciano Matos metformin 500 mg tablet 09-09 00:00: 00 Yes 1mg Marciano Matos Tricor 48 mg tablet 09-06 00:00: 00 Yes 1mg Marciano Matos metoprolol tartrate 50 mg tablet 09-06 00:00: 00 Yes 1mg Marciano Matos Tricor 48 mg tablet 2015-08 00:00: 00 Yes 1mg Marciano Matos metoprolol tartrate 50 mg tablet 2015-08 00:00: 00 Yes 1mg Marciano Matos lovastatin 20 mg tablet 09-22 00:00: 00 Yes 1mg Marciano Matos Vital Signs Vital Name Observation Time Observation Value Comments S ource Systolic blood pressure 2021-02-26 22:45:00 130 mm[Hg] [facility] Diastolic blood pressure 2021-02-26 22:45:00 88 mm[Hg] [facility] Heart rate 2021-02-26 22:45:00 67 /min [facility] Respiratory rate 2021-02-26 22:45:00 18 /min [facility] Oxygen saturation in Arterial blood by Pulse oximetry 2021-02-26 22:45:00 100 /min [facility] Body temperature 2021-02-26 22:15:00 37 Corinna [facility] Body height 2021-02-26 22:12:53 167.6 cm [facility] Body weight 2021-02-26 22:12:53 81.647 kg [facility] BMI 2021-02-26 22:12:53 29.05 kg/m2 [facility] Systolic blood pressure 2021-02-26 22:45:00 130 mm[Hg] [facility] Diastolic blood pressure 2021-02-26 22:45:00 88 mm[Hg] [facility] Heart rate 2021-02-26 22:45:00 67 /min [facility] Respiratory rate 2021-02-26 22:45:00 18 /min [facility] Oxygen saturation in Arterial blood by Pulse oximetry 2021-02-26 22:45:00 100 /min [facility] Body temperature 2021-02-26 22:15:00 37 Corinna [facility] Body height 2021-02-26 22:12:53 167.6 cm [facility] Body weight 2021-02-26 22:12:53 81.647 kg [facility] BMI 2021-02-26 22:12:53 29.05 kg/m2 [facility] Systolic blood pressure 2021-02-26 20:00:00 154 mm[Hg] [facility] Diastolic blood pressure 2021-02-26 20:00:00 97 mm[Hg] [facility] Heart rate 2021-02-26 20:00:00 71 /min [facility] Respiratory rate 2021-02-26 20:00:00 20 /min [facility] Oxygen saturation in Arterial blood by Pulse oximetry 2021-02-26 20:00:00 98 /min [facility] Body height 2021-02-26 17:57:43 167.6 cm [facility] Body weight 2021-02-26 17:57:43 81.647 kg [facility] BMI 2021-02-26 17:57:43 29.05 kg/m2 [facility] Systolic blood pressure 2021-02-26 20:00:00 154 mm[Hg] [facility] Diastolic blood pressure 2021-02-26 20:00:00 97 mm[Hg] [facility] Heart rate 2021-02-26 20:00:00 71 /min [facility] Respiratory rate 2021-02-26 20:00:00 20 /min [facility] Oxygen saturation in Arterial blood by Pulse oximetry 2021-02-26 20:00:00 98 /min [facility] Body height 2021-02-26 17:57:43 167.6 cm [facility] Body weight 2021-02-26 17:57:43 81.647 kg [facility] BMI 2021-02-26 17:57:43 29.05 kg/m2 [facility] BP Diastolic 2024-02-09 13:50:00 Gael phen F Carlo Weight Measured 2024-02-09 13:50:00 Marciano F Carlo Height Measured 2024-02-09 13:50:00 Marciano F Carlo Body Temperature 2024-02-09 13:50:00 Marciano F Carlo Heart Rate 2024-02-09 13:50:00 Ml en F Carlo Respiratory Rate 2024-02-09 13:50:00 Marciano F Carlo BP Systolic 2024-02-09 13:50:00 Step hen F Carlo BP Systolic 2023-10-19 10:26:00 162 mm[Hg] Step hen F Carlo BP Diastolic 2023-10-19 10:26:00 104 mm[Hg] Gael phen F Carlo Weight Measured 2023-10-19 10:26:00 184.80 pounds Marciano F Carlo Height Measured 2023-10-19 10:26:00 66.00 inches Marciano F Carlo Body Temperature 2023-10-19 10:26:00 98.10 degrees Marciano F Carlo Heart Rate 2023-10-19 10:26:00 50.00 /min Ml en F Carlo Respiratory Rate 2023-10-19 10:26:00 19.00 /min Marciano F Carlo BP Systolic 2023-10-19 10:18:00 162 mm[Hg] Step hen F Carlo BP Diastolic 2023-10-19 10:18:00 104 mm[Hg] Gael phen F Carlo Weight Measured 2023-10-19 10:18:00 184.80 pounds Marciano F Carlo Height Measured 2023-10-19 10:18:00 66.00 inches Marciano F Carlo Body Temperature 2023-10-19 10:18:00 98.10 degrees Marciano F Carlo Heart Rate 2023-10-19 10:18:00 50.00 /min Ml en F Carlo Respiratory Rate 2023-10-19 10:18:00 19.00 /min Marciano F Carlo BP Systolic 2023-10-19 09:59:00 162 mm[Hg] Step hen F Carlo BP Diastolic 2023-10-19 09:59:00 104 mm[Hg] Gael phen F Carlo Weight Measured 2023-10-19 09:59:00 184.80 pounds Marciano F Carlo Height Measured 2023-10-19 09:59:00 66.00 inches Marciano F Carlo Body Temperature 2023-10-19 09:59:00 98.10 degrees Marciano F Carlo Heart Rate 2023-10-19 09:59:00 50.00 /min Ml en F Carlo Respiratory Rate 2023-10-19 09:59:00 19.00 /min Marciano F Carlo BP Systolic 2023-03-20 08:09:00 152 mm[Hg] Step hen F Cralo BP Diastolic 2023-03-20 08:09:00 98 mm[Hg] Gael phen F Carlo Weight Measured 2023-03-20 08:09:00 181.60 pounds Marciano F Carlo Height Measured 2023-03-20 08:09:00 66.00 inches Marciano F Carlo Body Temperature 2023-03-20 08:09:00 97.80 degrees Marciano F Carlo Heart Rate 2023-03-20 08:09:00 56.00 /min Ml en F Carlo Respiratory Rate 2023-03-20 08:09:00 Marciano F Carlo BP Systolic 2022-04-05 15:24:00 146 mm[Hg] Step hen F Carlo BP Diastolic 2022-04-05 15:24:00 70 mm[Hg] Gael phen F Carlo Weight Measured 2022-04-05 15:24:00 183.60 pounds Marciano F Carlo Height Measured 2022-04-05 15:24:00 66.00 inches Marciano F Carlo Body Temperature 2022-04-05 15:24:00 99.90 degrees Marciano F Carlo Heart Rate 2022-04-05 15:24:00 64.00 /min Ml en F Carlo Respiratory Rate 2022-04-05 15:24:00 24.00 /min Marciano F Carlo BP Systolic 2021-11-02 13:54:00 120 mm[Hg] Step hen F Carlo BP Diastolic 2021-11-02 13:54:00 76 mm[Hg] Gael phen F Carlo Weight Measured 2021-11-02 13:54:00 Marciano F Carlo Height Measured 2021-11-02 13:54:00 Marciano F Carlo Body Temperature 2021-11-02 13:54:00 Marciano F Carlo Heart Rate 2021-11-02 13:54:00 57.00 /min Ml en F Carlo Respiratory Rate 2021-11-02 13:54:00 Marciano F Carlo BP Systolic 2021-10-22 19:08:00 Step hen F Carlo BP Diastolic 2021-10-22 19:08:00 Gael phen F Carlo Weight Measured 2021-10-22 19:08:00 185.00 pounds Marciano F Carlo Height Measured 2021-10-22 19:08:00 66.00 inches Marciano F Carlo Body Temperature 2021-10-22 19:08:00 Marciano F Carlo Heart Rate 2021-10-22 19:08:00 Ml en F Carlo Respiratory Rate 2021-10-22 19:08:00 Marciano F Carlo BP Systolic 2021-02-12 17:36:00 131 mm[Hg] Step hen F Carlo BP Diastolic 2021-02-12 17:36:00 74 mm[Hg] Gael phen F Carlo Weight Measured 2021-02-12 17:36:00 185.00 pounds Marciano F Carlo Height Measured 2021-02-12 17:36:00 66.00 inches Marciano F Carlo Body Temperature 2021-02-12 17:36:00 98.50 degrees Marciano F Carlo Heart Rate 2021-02-12 17:36:00 68.00 /min Ml en F Carlo Respiratory Rate 2021-02-12 17:36:00 23.00 /min Marciano F Carlo BP Systolic 2020-10-09 16:42:00 162 mm[Hg] Step hen F Carlo BP Diastolic 2020-10-09 16:42:00 112 mm[Hg] Gael phen F Carlo Weight Measured 2020-10-09 16:42:00 194.60 pounds Marciano F Carlo Height Measured 2020-10-09 16:42:00 66.00 inches Marciano F Carlo Body Temperature 2020-10-09 16:42:00 98.70 degrees Marciano Matos Heart Rate 2020-10-09 16:42:00 73.00 /min Ml Matos Respiratory Rate 2020-10-09 16:42:00 16.00 /min Marciano Matos Procedures Procedure Date / Time Performed Performing Clinician Source LIPASE 2021-02-26 19:09:00 Evelio Hu [facility] HEPATIC FUNCTION PANEL ([id number]) (ALB,T.PRO,BILI T,BU/BC,ALT,AST,ALK PHOS) 2021-02-26 19:09:00 Evelio Hu [facility] BASIC METABOLIC PANEL (NA, K, CL, CO2, GLUCOSE, BUN, CREATININE, CA) 2021-02-26 19:09:00 Evelio Hu [facility] CBC WITH DIFF 2021-02-26 19:09:00 Evelio Hu [facility] PROTHROMBIN TIME / INR 2021-02-26 19:09:00 Ramon Hu [facility] ACTIVATED PARTIAL THRMPLAS DIAZ 2021-02-26 19:09:00 Evelio Hu [facility] COVID-19 (ID NOW RAPID TESTING) 2021-02-26 19:09:00 Evelio Hu [facility] ASSIGNMENT OF BENEFITS 2021-02-26 18:44:05 Docto r Unassigned, Carpenter [facility] CT TRAUMA THORACIC SPINE WO CONTRAST 2021-02-26 18:43:58 Evelio Hu [facility] CT TRAUMA ABDOMEN PELVIS W CONTRAST 2021-02-26 18:43[facility] 2021-02-26 18:43:58 [facility] 2021-02-26 18:43:58 [facility] THORAX W [facility] 2021-02-26 18:43:58 Fritz [facility] CT TRAUMA CERVICAL SPINE WO CONTRAST 2021-02-26 18:43:58 [facility]W LEFT 2021-02-26 18:17:04 Evelio Hu [facility] XR SHOULDER 2+ VW LEFT 2021-02-26 18:17:04 Ramon Hu [facility] NOTICE OF PRIVACY PRACTICES 2021-02-26 17:57:20 Doctor Unassigned, Carpenter [facility] CONSENT/REFUSAL FOR DIAGNOSIS AND TREATMENT 2021-02-26 17:56:59 Doctor Unassigned, Carpenter [facility] [id number] Ecg Routine Ecg W/least 12 Lds W/i r 2017-05-18 00:00:00 Marciano Matos Encounters Start Date/Time End Date/Time Encounter Type Admission Type Attending [facility] Care Department Encounter ID Source 2024-06-18 14:28:11 2024-06-18 14:28:11 Outpatient S[facility] [id number] Marciano Matos 2024-06-10 00:00:00 2024-06-10 00:00:00 Outpatient Visit [id number] Marciano Matos 2024-05-20 13:12:43 2024-05-20 13:12:43 Outpatient SFA [id number] Marciano Matos 2024-05-20 00:00:00 2024-05-20 00:00:00 Outpatient Visit SFA [id number] Marciano Matos 2024-02-09 13:50:02 2024-02-09 13:50:02 Outpatient SFA [id number] Marciano Matos 2024-02-09 00:00:00 2024-02-09 00:00:00 Outpatient Visit SFA [id number] Marciano Matos 2023-10-19 09:52:07 2023-10-19 09:52:07 Outpatient SFA [id number] Marciano Matos 2023-06-17 07:39:00 2023-06-17 08:54:00 Emergency ER [facility] [id number] [facility] 2023-03-20 08:02:44 2023-03-20 08:02:44 Outpatient SFA [id number] Marciano Matos 2021-02-26 17:14:00 2021-02-26 17:50:00 Emergency Barrett Alanna Jonathan [facility] [id number] 2021-02-26 17:14:00 2021-02-26 17:50:00 Emergency Alanna Barrett [facility] [id number] [facility] 2021-02-26 17:14:00 2021-02-26 17:14:00 Emergency T [facility] STR [id number] [facility] 2021-02-26 12:54:00 2021-02-26 16:21:00 Emergency Evelio Hu [facility] [id number] 2021-02-26 12:54:00 2021-02-26 16:21:00 Emergency Evelio Hu [facility] [id number] [facility] 2021-02-26 12:54:00 2021-02-26 12:54:00 Emergency X EVELIO HU [facility] ERT [id number] [facility] Results Test Description Test Time Test Comments Results Result Co mments Source COMPREHENSIVE METABOLIC [id number] 22:35:35* Test Item Value Reference Range Interpretation Comme nts GLUCOSE (test code = 2217) 86 MG/DL 70-99 BUN (test code = 2208) 12 MG/DL 6-20 CREATININE (test code = 2214) 1.02 MG/DL 0.80-1.40 eGFR (2020 CKD-EPI) (test code = 91409) 90 ML/MIN/1.73 >60 CALC BUN/CREAT (test code = 2235) 12 RATIO 6-28 SODIUM (test code = 2230) 143 MEQ/L 133-146 POTASSIUM (test code = 8) 3.9 MEQ/L 3.5-5.4 CHLORIDE (test code = 2214) 107 MEQ/L 95-107 CARBON DIOXIDE (test code = 2205) 20 MEQ/L 19-31 CALCIUM (test code = 2208) 9.8 MG/DL 8.5-10.5 PROTEIN, TOTAL (test code = 2228) 7.2 G/DL 6.1-8.3 ALBUMIN (test code = 2200) 4.7 G/DL 3.5-5.2 CALC GLOBULIN (test code = 0) 2.5 G/DL 1.9-3.7 CALC A/G RATIO (test code = 2233) 1.9 RATIO 1.0-2.6 BILIRUBIN, TOTAL (test code = 2206) 0.3 MG/DL <=1.2 ALKALINE PHOSPHATASE (test code = 2203) 72 U/L 40-118 AST (test code = 2218) 28 U/L 9-50 ALT (test code = 2219) 30 U/L 5-50 UNLESS OTHERWISE INDICATED, ALL TESTING PERFORMED AT [facility] [address] [place] [address] [employer]ANDB[employer]ER PAINT SPRAYER: SUSAN GUARDADO M.D. CLIA NUMBER [id number] [facility] [place]. [id number] HEMOGLOBIN [id number] 03:00:09* Test Item Value Reference Range Interpretation Comme [facility] HEMOGLOBIN A1c (test code = 15798) 6.3 % 4.2-5.6 H [employer] GUIDELINES FOR HGB A1C: PREDIABETES/INCREASED RISK . . . . . . . 5.7-6.4% DIAGNOSIS OF DIABETES . . . . . . . . . >=6.5% WITH CONFIRMATION OR APPROPRIATE SYMPTOMS NOTE: ASSAY MAY BE AFFECTED BY HEMOGLOBINOPATHIES (SICKLE CELL ANEMIA, S-C DISEASE, OTHERS) OR ARTIFICIALLY LOWERED BY DECREASED RED CELL SURVIVAL (HEMOLYTIC ANEMIAS, BLOOD LOSS, ETC.). CONSIDER ALTERNATE TESTING OR LABORATORY CONSULTATION. COMPREHENSIVE METABOLIC [id number] 03:05:43* Test Item Value Reference Range Interpretation Comme nts GLUCOSE (test code = 2216) 109 MG/DL 70-99 H BUN (test code = 220) 14 MG/DL 6-20 CREATININE (test code = 221) 0.94 MG/DL 0.80-1.40 eGFR (2020 CKD-EPI) (test co de = 71034) 99 ML/MIN/1.73 >60 CALC BUN/CREAT (test code = 223) 15 RATIO 6-28 SODIUM (test code = 223) 136 MEQ/L 133-146 POTASSIUM (test code = 222) 4.6 MEQ/L 3.5-5.4 CHLORIDE (test code = 2214) 102 MEQ/L 95-107 CARBON DIOXIDE (test code = 2205) 22 MEQ/L 19-31 CALCIUM (test code = 2208) 10.0 MG/DL 8.5-10.5 PROTEIN, TOTAL (test code = 2228) 7.5 G/DL 6.1-8.3 ALBUMIN (test code = 2200) 4.7 G/DL 3.5-5.2 CALC GLOBULIN (test code = 2240) 2.8 G/DL 1.9-3.7 CALC A/G RATIO (test code = 223) 1.7 RATIO 1.0-2.6 BILIRUBIN, TOTAL (test code = 2206) 0.3 MG/DL <=1.2 ALKALINE PHOSPHATASE (test code = 2204) 59 U/L 40-118 AST (test code = 2218) 14 U/L 9-50 ALT (test code = 2219) 22 U/L 5-50 LIPID [id number] 03:05:43* Test Item Value Reference Range Interpretation Comme nts CHOLESTEROL (test code = 2210) 217 MG/DL <200 H TRIGLYCERIDES (test code = 2232) 176 MG/DL <150 H HDL CHOLESTEROL (test code = 2220) 31 MG/DL >39 L CALC LDL CHOL (test code = 223) 155 MG/DL <100 H NOTE: CALCULATED LDL IS BASED ON SWETHA-WARD METHOD WHICHINCLUDES ADJUSTABLE TRIGLYCERIDE:VLDL CHOLESTEROL RATIO.THIS FACTOR VARIES BY MEASURED TRIGLYCERIDE AND NON-HDLCHOLESTEROL CONCENTRATIONS WITH INCREASED CALCULATED LDL SEENIN HIGHER TRIGLYCERIDE OR LOWER NON-HDL SPECIMENS. FOR MOREINFORMATION, SEE CLIENT ANNOUNCEMENT AT [email or web address] RISK RATIO LDL/HDL (test code = 2238) 5.00 RATIO <3.55 H HEMOGLOBIN [id number] 02:35:32* Test Item Value Reference Range Interpretation Comme [facility] HEMOGLOBIN A1c (test code = 30858) 6.0 % 4.2-5.6 H [employer] GUIDELINES FOR HGB A1C: PREDIABETES/INCREASED RISK . . . . . . . 5.7-6.4% DIAGNOSIS OF DIABETES . . . . . . . . . >=6.5% WITH CONFIRMATION OR APPROPRIATE SYMPTOMS NOTE: ASSAY MAY BE AFFECTED BY HEMOGLOBINOPATHIES (SICKLE CELL ANEMIA, S-C DISEASE, OTHERS) OR ARTIFICIALLY LOWERED BY DECREASED RED CELL SURVIVAL (HEMOLYTIC ANEMIAS, BLOOD LOSS, ETC.). CONSIDER ALTERNATE TESTING OR LABORATORY CONSULTATION. UNLESS OTHERWISE INDICATED, ALL TESTING PERFORMED AT [facility] [address] [place] [id number] SANDBLASTER PAINT SPRAYER: SUSAN GUARDADO M.D. IA NUMBER [id number] [facility] [place]. [id number] HEMOGLOBIN [id number] 00:00:00* Test Item Value Reference Range Interpretation Comme [facility] HEMOGLOBIN A1c (test code = 51557) 6.0 % Marciano MatosCOMPREHENSIVE METABOLIC [id number] 00:00:00* Test Item Value Reference Range Interpretation Comme nts GLUCOSE (test code = 2217) 109 MG/DL BUN (test code = 2208) 14 MG/DL CREATININE (test code = 2214) 0.94 MG/DL eGFR (2020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 ordislocation. Nosignificant changes of arthritis or aggressive bone lesionsseen.CONCLUSIONS: No acute fracture or dislocation in left shoulder. [facility]OVID[facility] by RT-PCR (HIGH RISK) 2020-10-27 00:00:00* Test Item Value Reference Range Interpretation Comme nts SARS-CoV-2 INTERPRETATION (t est code = 95984) NEGATIVE SOURCE (test code = 34962) NOT SPECIFIED Marciano Calle [id number] (COVID-19) by RT-PCR (HIGH RISK)2020-10-27 00:00:00* Test Item Value Reference Range Interpretation Comme nts SARS-CoV-2 INTERPRETATION (t est code = 76257) NEGATIVE SOURCE (test code = 98376) NOT SPECIFIED Marciano Calle [id number] (COVID-19) by RT-PCR (HIGH RISK)2020-10-27 00:00:00* Test Item Value Reference Range Interpretation Comme nts SARS-CoV-2 INTERPRETATION (t est code = 67769) NEGATIVE SOURCE (test code = 45073) NOT SPECIFIED Marciano MatosHEMOGLOBIN [id number] 00:00:00* Test Item Value Reference Range Interpretation Comme nts HEMOGLOBIN A1c (test code = 62552) 6.3 % Marciano MatosPSA, [id number] 00:00:00* Test Item Value Reference Range Interpretation Comme nts PSA, TOTAL (test code = 2606) 0.45 NG/ML Marciano MatosCOMPREHENSIVE METABOLIC [id number] 00:00:00* Test Item Value Reference Range Interpretation Comme nts GLUCOSE (test code = 2217) 117 MG/DL BUN (test code = 2208) 13 MG/DL CREATININE (test code = 2214) 0.88 MG/DL eGFR AMER. (test cod e = 70220) 119 ML/MIN/1.73 eGFR NON- AMER. (test code = 74338) 103 ML/MIN/1.73 CALC BUN/CREAT (test code = 2235) 15 RATIO SODIUM (test code = 2231) 139 MEQ/L POTASSIUM (test code = 2228) 4.5 MEQ/L CHLORIDE (test code = 2215) 101 MEQ/L CARBON DIOXIDE (test code = 2206) 24 MEQ/L CALCIUM (test code = 2209) 9.5 MG/DL PROTEIN, TOTAL (test code = 2229) 7.6 G/DL ALBUMIN (test code = 2201) 4.6 G/DL CALC GLOBULIN (test code = 2240) 3.0 G/DL CALC A/G RATIO (test code = 2234) 1.5 RATIO BILIRUBIN, TOTAL (test code = 2207) 0.4 MG/DL ALKALINE PHOSPHATASE (test code = 2204) 77 U/L AST (test code = 2218) 17 U/L ALT (test code = 2219) 22 U/L Marciano MatosLIPID [id number] 00:00:00* Test Item Value Reference Range Interpretation Comme nts CHOLESTEROL (test code = 2210) 251 MG/DL TRIGLYCERIDES (test code = 2232) 641 MG/DL HDL CHOLESTEROL (test code = 2220) 27 MG/DL CALC LDL CHOL (test code = 2237) (NOTE) MG/DL RISK RATIO LDL/HDL (test cod e = 2238) (NOTE) RATIO Marciano MatosHEMOGLOBIN [id number] 00:00:00* Test Item Value Reference Range Interpretation Comme nts HEMOGLOBIN A1c (test code = 04652) 6.3 % Marciano MatosPSA, [id number] 00:00:00* Test Item Value Reference Range Interpretation Comme nts PSA, TOTAL (test code = 2606) 0.45 NG/ML Marciano MatosCOMPREHENSIVE METABOLIC [id number] 00:00:00* Test Item Value Reference Range Interpretation Comme nts GLUCOSE (test code = 2217) 117 MG/DL BUN (test code = 2208) 13 MG/DL CREATININE (test code = 2214) 0.88 MG/DL eGFR AMER. (test cod e = 53028) 119 ML/MIN/1.73 eGFR NON- AMER. (test code = 43941) 103 ML/MIN/1.73 CALC BUN/CREAT (test code = 2235) 15 RATIO SODIUM (test code = 2231) 139 MEQ/L POTASSIUM (test code = 2228) 4.5 MEQ/L CHLORIDE (test code = 2215) 101 MEQ/L CARBON DIOXIDE (test code = 2206) 24 MEQ/L CALCIUM (test code = 2209) 9.5 MG/DL PROTEIN, TOTAL (test code = 2229) 7.6 G/DL ALBUMIN (test code = 2201) 4.6 G/DL CALC GLOBULIN (test code = 2240) 3.0 G/DL CALC A/G RATIO (test code = 2234) 1.5 RATIO BILIRUBIN, TOTAL (test code = 2207) 0.4 MG/DL ALKALINE PHOSPHATASE (test code = 2204) 77 U/L AST (test code = 2218) 17 U/L ALT (test code = 2219) 22 U/L Marciano MatosLIPID [id number] 00:00:00* Test Item Value Reference Range Interpretation Comme nts CHOLESTEROL (test code = 2210) 251 MG/DL TRIGLYCERIDES (test code = 2232) 641 MG/DL HDL CHOLESTEROL (test code = 2220) 27 MG/DL CALC LDL CHOL (test code = 2237) (NOTE) MG/DL RISK RATIO LDL/HDL (test cod e = 2238) (NOTE) RATIO Marciano MatosHEMOGLOBIN [id number] 00:00:00* Test Item Value Reference Range Interpretation Comme nts HEMOGLOBIN A1c (test code = 96232) 6.3 % Marciano MatosPSA, [id number] 00:00:00* Test Item Value Reference Range Interpretation Comme nts PSA, TOTAL (test code = 2606) 0.45 NG/ML Marciano MatosCOMPREHENSIVE METABOLIC [id number] 00:00:00* Test Item Value Reference Range Interpretation Comme nts GLUCOSE (test code = 2217) 117 MG/DL BUN (test code = 2208) 13 MG/DL CREATININE (test code = 2214) 0.88 MG/DL eGFR AMER. (test cod e = 13563) 119 ML/MIN/1.73 eGFR NON- AMER. (test code = 00262) 103 ML/MIN/1.73 CALC BUN/CREAT (test code = 2235) 15 RATIO SODIUM (test code = 2231) 139 MEQ/L POTASSIUM (test code = 2228) 4.5 MEQ/L CHLORIDE (test code = 2215) 101 MEQ/L CARBON DIOXIDE (test code = 2206) 24 MEQ/L CALCIUM (test code = 2209) 9.5 MG/DL PROTEIN, TOTAL (test code = 2229) 7.6 G/DL ALBUMIN (test code = 2201) 4.6 G/DL CALC GLOBULIN (test code = 2240) 3.0 G/DL CALC A/G RATIO (test code = 2234) 1.5 RATIO BILIRUBIN, TOTAL (test code = 2207) 0.4 MG/DL ALKALINE PHOSPHATASE (test code = 2204) 77 U/L AST (test code = 2218) 17 U/L ALT (test code = 2219) 22 U/L Marciano Calle AustinLIPID [id number] 00:00:00* Test Item Value Reference Range Interpretation Comme nts CHOLESTEROL (test code = 2210) 251 MG/DL TRIGLYCERIDES (test code = 2232) 641 MG/DL HDL CHOLESTEROL (test code = 2220) 27 MG/DL CALC LDL CHOL (test code = 2237) (NOTE) MG/DL RISK RATIO LDL/HDL (test cod e = 2238) (NOTE) RATIO Marciano MatosCOMPREHENSIVE METABOLIC [id number] 00:00:00* Test Item Value Reference Range Interpretation Comme nts GLUCOSE (test code = 2217) 107 MG/DL BUN (test code = 2208) 14 MG/DL CREATININE (test code = 2214) 0.79 MG/DL eGFR AMER. (test cod e = 12453) 127 ML/MIN/1.73 eGFR NON- AMER. (test code = 83125) 110 ML/MIN/1.73 CALC BUN/CREAT (test code = 2235) 18 RATIO SODIUM (test code = 2231) 140 MEQ/L POTASSIUM (test code = 2228) 4.1 MEQ/L CHLORIDE (test code = 2215) 102 MEQ/L CARBON DIOXIDE (test code = 2206) 22 MEQ/L CALCIUM (test code = 2209) 9.2 MG/DL PROTEIN, TOTAL (test code = 2229) 7.2 G/DL ALBUMIN (test code = 2201) 4.3 G/DL CALC GLOBULIN (test code = 2240) 2.9 G/DL CALC A/G RATIO (test code = 2234) 1.5 RATIO BILIRUBIN, TOTAL (test code = 2207) 0.3 MG/DL ALKALINE PHOSPHATASE (test code = 2204) 70 U/L AST (test code = 2218) 18 U/L ALT (test code = 2219) 32 U/L Marciano MatosLIPID [id number] 00:00:00* Test Item Value Reference Range Interpretation Comme nts CHOLESTEROL (test code = 2210) 237 MG/DL TRIGLYCERIDES (test code = 2232) 427 MG/DL HDL CHOLESTEROL (test code = 2220) 25 MG/DL CALC LDL CHOL (test code = 2237) NOTE MG/DL RISK RATIO LDL/HDL (test cod e = 2238) (NOTE) RATIO Marciano MatosHEMOGLOBIN [id number] 00:00:00* Test Item Value Reference Range Interpretation Comme sultana HEMOGLOBIN A1c (test code = 57096) 5.7 % Marciano [id number] 00:00:00* Test Item Value Reference Range Interpretation Comme nts TESTOSTERONE (test code = 2830) 425 NG/DL Marciano MatosCBC W/AUTO [id number] 00:00:00* Test Item Value Reference Range Interpretation Comme nts WBC (test code = 1001) 6.9 K/UL RBC (test code = 1002) 4.25 M/UL HEMOGLOBIN (test code = 1003) 13.2 G/DL HEMATOCRIT (test code = 1004) 38.5 % MCV (test code = 1005) 90.6 fL MCH (test code = 1006) 31.1 PG MCHC (test code = 1007) 34.3 G/DL RDW (test code = 1038) 13.0 % NEUTROPHILS (test code = 1008) 63.0 % LYMPHOCYTES (test code = 1010) 28.0 % MONOCYTES (test code = 1011) 6.6 % EOSINOPHILS (test code = 1012) 2.0 % BASOPHILS (test code = 1013) 0.4 % PLATELET COUNT (test code = 1015) 394 K/UL Marciano MatosCOMPREHENSIVE METABOLIC [id number] 00:00:00* Test Item Value Reference Range Interpretation Comme nts GLUCOSE (test code = 2217) 107 MG/DL BUN (test code = 2208) 14 MG/DL CREATININE (test code = 2214) 0.79 MG/DL eGFR AMER. (test cod e = 78948) 127 ML/MIN/1.73 eGFR NON- AMER. (test code = 95781) 110 ML/MIN/1.73 CALC BUN/CREAT (test code = 2235) 18 RATIO SODIUM (test code = 2231) 140 MEQ/L POTASSIUM (test code = 2228) 4.1 MEQ/L CHLORIDE (test code = 2215) 102 MEQ/L CARBON DIOXIDE (test code = 2206) 22 MEQ/L CALCIUM (test code = 2209) 9.2 MG/DL PROTEIN, TOTAL (test code = 2229) 7.2 G/DL ALBUMIN (test code = 2201) 4.3 G/DL CALC GLOBULIN (test code = 2240) 2.9 G/DL CALC A/G RATIO (test code = 2234) 1.5 RATIO BILIRUBIN, TOTAL (test code = 2207) 0.3 MG/DL ALKALINE PHOSPHATASE (test code = 2204) 70 U/L AST (test code = 2218) 18 U/L ALT (test code = 2219) 32 U/L Marciano MatosLIPID [id number] 00:00:00* Test Item Value Reference Range Interpretation Comme nts CHOLESTEROL (test code = 2210) 237 MG/DL TRIGLYCERIDES (test code = 2232) 427 MG/DL HDL CHOLESTEROL (test code = 2220) 25 MG/DL CALC LDL CHOL (test code = 2237) NOTE MG/DL RISK RATIO LDL/HDL (test cod e = 2238) (NOTE) RATIO Marciano MatosHEMOGLOBIN [id number] 00:00:00* Test Item Value Reference Range Interpretation Comme nts HEMOGLOBIN A1c (test code = 38756) 5.7 % Marciano [id number] 00:00:00* Test Item Value Reference Range Interpretation Comme sultana TESTOSTERONE (test code = 2830) 425 NG/DL Marciano MatosCBC W/AUTO [id number] 00:00:00* Test Item Value Reference Range Interpretation Comme nts WBC (test code = 1001) 6.9 K/UL RBC (test code = 1002) 4.25 M/UL HEMOGLOBIN (test code = 1003) 13.2 G/DL HEMATOCRIT (test code = 1004) 38.5 % MCV (test code = 1005) 90.6 fL MCH (test code = 1006) 31.1 PG MCHC (test code = 1007) 34.3 G/DL RDW (test code = 1038) 13.0 % NEUTROPHILS (test code = 1008) 63.0 % LYMPHOCYTES (test code = 1010) 28.0 % MONOCYTES (test code = 1011) 6.6 % EOSINOPHILS (test code = 1012) 2.0 % BASOPHILS (test code = 1013) 0.4 % PLATELET COUNT (test code = 1015) 394 K/UL Marciano MatosCOMPREHENSIVE METABOLIC [id number] 00:00:00* Test Item Value Reference Range Interpretation Comme sultana GLUCOSE (test code = 2217) 107 MG/DL BUN (test code = 2208) 14 MG/DL CREATININE (test code = 2214) 0.79 MG/DL eGFR AMER. (test cod e = 68252) 127 ML/MIN/1.73 eGFR NON- AMER. (test code = 15200) 110 ML/MIN/1.73 CALC BUN/CREAT (test code = 2235) 18 RATIO SODIUM (test code = 2231) 140 MEQ/L POTASSIUM (test code = 2228) 4.1 MEQ/L CHLORIDE (test code = 2215) 102 MEQ/L CARBON DIOXIDE (test code = 2206) 22 MEQ/L CALCIUM (test code = 2209) 9.2 MG/DL PROTEIN, TOTAL (test code = 2229) 7.2 G/DL ALBUMIN (test code = 2201) 4.3 G/DL CALC GLOBULIN (test code = 2240) 2.9 G/DL CALC A/G RATIO (test code = 2234) 1.5 RATIO BILIRUBIN, TOTAL (test code = 2207) 0.3 MG/DL ALKALINE PHOSPHATASE (test code = 2204) 70 U/L AST (test code = 2218) 18 U/L ALT (test code = 2219) 32 U/L Marciano MatosLIPID [id number] 00:00:00* Test Item Value Reference Range Interpretation Comme nts CHOLESTEROL (test code = 2210) 237 MG/DL TRIGLYCERIDES (test code = 2232) 427 MG/DL HDL CHOLESTEROL (test code = 2220) 25 MG/DL CALC LDL CHOL (test code = 2237) NOTE MG/DL RISK RATIO LDL/HDL (test cod e = 2238) (NOTE) RATIO Marciano MatosHEMOGLOBIN [id number] 00:00:00* Test Item Value Reference Range Interpretation Comme sultana HEMOGLOBIN A1c (test code = 56699) 5.7 % Marciano Calle [id number] 00:00:00* Test Item Value Reference Range Interpretation Comme nts TESTOSTERONE (test code = 2830) 425 NG/DL Marciano MatosCBC W/AUTO [id number] 00:00:00* Test Item Value Reference Range Interpretation Comme nts WBC (test code = 1001) 6.9 K/UL RBC (test code = 1002) 4.25 M/UL HEMOGLOBIN (test code = 1003) 13.2 G/DL HEMATOCRIT (test code = 1004) 38.5 % MCV (test code = 1005) 90.6 fL MCH (test code = 1006) 31.1 PG MCHC (test code = 1007) 34.3 G/DL RDW (test code = 1038) 13.0 % NEUTROPHILS (test code = 1008) 63.0 % LYMPHOCYTES (test code = 1010) 28.0 % MONOCYTES (test code = 1011) 6.6 % EOSINOPHILS (test code = 1012) 2.0 % BASOPHILS (test code = 1013) 0.4 % PLATELET COUNT (test code = 1015) 394 K/UL Marciano Calle [id number] 00:00:00* Test Item Value Reference Range Interpretation Comme nts TESTOSTERONE (test code = 2830) 414 NG/DL Marciano Calle [id number] 00:00:00* Test Item Value Reference Range Interpretation Comme nts TESTOSTERONE (test code = 2830) 414 NG/DL Marciano Calle [id number] 00:00:00* Test Item Value Reference Range Interpretation Comme nts TESTOSTERONE (test code = 2830) 414 NG/DL Marciano MatosPSA, [id number] 00:00:00* Test Item Value Reference Range Interpretation Comme nts PSA, TOTAL (test code = 2606) 0.36 NG/ML Marciano Calle [id number] 00:00:00* Test Item Value Reference Range Interpretation Comme nts TESTOSTERONE (test code = 2830) 417 NG/DL Marciano MatosPSA, [id number] 00:00:00* Test Item Value Reference Range Interpretation Comme nts PSA, TOTAL (test code = 2606) 0.36 NG/ML Marciano Calle [id number] 00:00:00* Test Item Value Reference Range Interpretation Comme nts TESTOSTERONE (test code = 2830) 417 NG/DL Marciano MatosPSA, [id number] 00:00:00* Test Item Value Reference Range Interpretation Comme nts PSA, TOTAL (test code = 2606) 0.36 NG/ML Marciano Calle [id number] 00:00:00* Test Item Value Reference Range Interpretation Comme nts TESTOSTERONE (test code = 2830) 417 NG/DL Marciano MatosCBC W/AUTO [id number] 00:00:00* Test Item Value Reference Range Interpretation Comme nts WBC (test code = 1001) 9.0 K/UL RBC (test code = 1002) 4.55 M/UL HEMOGLOBIN (test code = 1003) 14.5 G/DL HEMATOCRIT (test code = 1004) 40.5 % MCV (test code = 1005) 89.0 fL MCH (test code = 1006) 31.9 PG MCHC (test code = 1007) 35.8 G/DL RDW (test code = 1038) 12.9 % NEUTROPHILS (test code = 1008) 65.7 % LYMPHOCYTES (test code = 1010) 23.5 % MONOCYTES (test code = 1011) 8.5 % EOSINOPHILS (test code = 1012) 1.9 % BASOPHILS (test code = 1013) 0.4 % PLATELET COUNT (test code = 1015) 344 K/UL Marciano MaotsHEMOGLOBIN [id number] 00:00:00* Test Item Value Reference Range Interpretation Comme nts HEMOGLOBIN A1c (test code = 42913) 5.8 % Marciano [id number] 00:00:00* Test Item Value Reference Range Interpretation Comme nts TESTOSTERONE (test code = 2830) 239 NG/DL Marciano MatosCOMPREHENSIVE METABOLIC [id number] 00:00:00* Test Item Value Reference Range Interpretation Comme nts GLUCOSE (test code = 2217) 113 MG/DL BUN (test code = 2208) 13 MG/DL CREATININE (test code = 2214) 0.82 MG/DL eGFR AMER. (test cod e = 29999) 126 ML/MIN/1.73 eGFR NON- AMER. (test code = 51035) 108 ML/MIN/1.73 CALC BUN/CREAT (test code = 2235) 16 RATIO SODIUM (test code = 2231) 141 MEQ/L POTASSIUM (test code = 2228) 4.5 MEQ/L CHLORIDE (test code = 2215) 102 MEQ/L CARBON DIOXIDE (test code = 2206) 23 MEQ/L CALCIUM (test code = 2209) 9.3 MG/DL PROTEIN, TOTAL (test code = 2229) 7.5 G/DL ALBUMIN (test code = 2201) 4.8 G/DL CALC GLOBULIN (test code = 2240) 2.7 G/DL CALC A/G RATIO (test code = 2234) 1.8 RATIO BILIRUBIN, TOTAL (test code = 2207) 0.1 MG/DL ALKALINE PHOSPHATASE (test code = 2204) 90 U/L AST (test code = 2218) 22 U/L ALT (test code = 2219) 48 U/L Marciano MatosLIPID [id number] 00:00:00* Test Item Value Reference Range Interpretation Comme nts CHOLESTEROL (test code = 2210) 255 MG/DL TRIGLYCERIDES (test code = 2232) 1111 MG/DL HDL CHOLESTEROL (test code = 2220) 19 MG/DL CALC LDL CHOL (test code = 2237) NOTE MG/DL RISK RATIO LDL/HDL (test cod e = 2238) (NOTE) RATIO Marciano MatosCBC W/AUTO [id number] 00:00:00* Test Item Value Reference Range Interpretation Comme nts WBC (test code = 1001) 9.0 K/UL RBC (test code = 1002) 4.55 M/UL HEMOGLOBIN (test code = 1003) 14.5 G/DL HEMATOCRIT (test code = 1004) 40.5 % MCV (test code = 1005) 89.0 fL MCH (test code = 1006) 31.9 PG MCHC (test code = 1007) 35.8 G/DL RDW (test code = 1038) 12.9 % NEUTROPHILS (test code = 1008) 65.7 % LYMPHOCYTES (test code = 1010) 23.5 % MONOCYTES (test code = 1011) 8.5 % EOSINOPHILS (test code = 1012) 1.9 % BASOPHILS (test code = 1013) 0.4 % PLATELET COUNT (test code = 1015) 344 K/UL Marciano MatosHEMOGLOBIN [id number] 00:00:00* Test Item Value Reference Range Interpretation Comme nts HEMOGLOBIN A1c (test code = 89561) 5.8 % Marciano [id number] 00:00:00* Test Item Value Reference Range Interpretation Comme nts TESTOSTERONE (test code = 2830) 239 NG/DL Marciano MatosCOMPREHENSIVE METABOLIC [id number] 00:00:00* Test Item Value Reference Range Interpretation Comme nts GLUCOSE (test code = 2217) 113 MG/DL BUN (test code = 2208) 13 MG/DL CREATININE (test code = 2214) 0.82 MG/DL eGFR AMER. (test cod e = 12831) 126 ML/MIN/1.73 eGFR NON- AMER. (test code = 27926) 108 ML/MIN/1.73 CALC BUN/CREAT (test code = 2235) 16 RATIO SODIUM (test code = 2231) 141 MEQ/L POTASSIUM (test code = 2228) 4.5 MEQ/L CHLORIDE (test code = 2215) 102 MEQ/L CARBON DIOXIDE (test code = 2206) 23 MEQ/L CALCIUM (test code = 2209) 9.3 MG/DL PROTEIN, TOTAL (test code = 2229) 7.5 G/DL ALBUMIN (test code = 2201) 4.8 G/DL CALC GLOBULIN (test code = 2240) 2.7 G/DL CALC A/G RATIO (test code = 2234) 1.8 RATIO BILIRUBIN, TOTAL (test code = 2207) 0.1 MG/DL ALKALINE PHOSPHATASE (test code = 2204) 90 U/L AST (test code = 2218) 22 U/L ALT (test code = 2219) 48 U/L Marciano MatosLIPID [id number] 00:00:00* Test Item Value Reference Range Interpretation Comme nts CHOLESTEROL (test code = 2210) 255 MG/DL TRIGLYCERIDES (test code = 2232) 1111 MG/DL HDL CHOLESTEROL (test code = 2220) 19 MG/DL CALC LDL CHOL (test code = 2237) NOTE MG/DL RISK RATIO LDL/HDL (test cod e = 2238) (NOTE) RATIO Marciano Calle AustinCBC W/AUTO [id number] 00:00:00* Test Item Value Reference Range Interpretation Comme nts WBC (test code = 1001) 9.0 K/UL RBC (test code = 1002) 4.55 M/UL HEMOGLOBIN (test code = 1003) 14.5 G/DL HEMATOCRIT (test code = 1004) 40.5 % MCV (test code = 1005) 89.0 fL MCH (test code = 1006) 31.9 PG MCHC (test code = 1007) 35.8 G/DL RDW (test code = 1038) 12.9 % NEUTROPHILS (test code = 1008) 65.7 % LYMPHOCYTES (test code = 1010) 23.5 % MONOCYTES (test code = 1011) 8.5 % EOSINOPHILS (test code = 1012) 1.9 % BASOPHILS (test code = 1013) 0.4 % PLATELET COUNT (test code = 1015) 344 K/UL Marciano MatosHEMOGLOBIN [id number] 00:00:00* Test Item Value Reference Range Interpretation Comme nts HEMOGLOBIN A1c (test code = 79736) 5.8 % Marciano [id number] 00:00:00* Test Item Value Reference Range Interpretation Comme nts TESTOSTERONE (test code = 2830) 239 NG/DL Marciano MatosCOMPREHENSIVE METABOLIC [id number] 00:00:00* Test Item Value Reference Range Interpretation Comme nts GLUCOSE (test code = 2217) 113 MG/DL BUN (test code = 2208) 13 MG/DL CREATININE (test code = 2214) 0.82 MG/DL eGFR AMER. (test cod e = 95862) 126 ML/MIN/1.73 eGFR NON- AMER. (test code = 91895) 108 ML/MIN/1.73 CALC BUN/CREAT (test code = 2235) 16 RATIO SODIUM (test code = 2231) 141 MEQ/L POTASSIUM (test code = 2228) 4.5 MEQ/L CHLORIDE (test code = 2215) 102 MEQ/L CARBON DIOXIDE (test code = 2206) 23 MEQ/L CALCIUM (test code = 2209) 9.3 MG/DL PROTEIN, TOTAL (test code = 2229) 7.5 G/DL ALBUMIN (test code = 2201) 4.8 G/DL CALC GLOBULIN (test code = 2240) 2.7 G/DL CALC A/G RATIO (test code = 2234) 1.8 RATIO BILIRUBIN, TOTAL (test code = 2207) 0.1 MG/DL ALKALINE PHOSPHATASE (test code = 2204) 90 U/L AST (test code = 2218) 22 U/L ALT (test code = 2219) 48 U/L Marciano MatosLIPID [id number] 00:00:00* Test Item Value Reference Range Interpretation Comme nts CHOLESTEROL (test code = 2210) 255 MG/DL TRIGLYCERIDES (test code = 2232) 1111 MG/DL HDL CHOLESTEROL (test code = 2220) 19 MG/DL CALC LDL CHOL (test code = 2237) NOTE MG/DL RISK RATIO LDL/HDL (test cod e = 2238) (NOTE) RATIO Marciano MatosPSA, [id number] 00:00:00* Test Item Value Reference Range Interpretation Comme nts PSA, TOTAL (test code = 2606) 0.36 NG/ML Marciano MatosCOMPREHENSIVE METABOLIC [id number] 00:00:00* Test Item Value Reference Range Interpretation Comme nts GLUCOSE (test code = 2217) 115 MG/DL BUN (test code = 2208) 13 MG/DL CREATININE (test code = 2214) 0.90 MG/DL eGFR AMER. (test cod e = 10827) 122 ML/MIN/1.73 eGFR NON- AMER. (test code = 30649) 105 ML/MIN/1.73 CALC BUN/CREAT (test code = 2235) 14 RATIO SODIUM (test code = 2231) 141 MEQ/L POTASSIUM (test code = 2228) 4.5 MEQ/L CHLORIDE (test code = 2215) 101 MEQ/L CARBON DIOXIDE (test code = 2206) 17 MEQ/L CALCIUM (test code = 2209) 9.5 MG/DL PROTEIN, TOTAL (test code = 2229) 7.4 G/DL ALBUMIN (test code = 2201) 4.4 G/DL CALC GLOBULIN (test code = 2240) 3.0 G/DL CALC A/G RATIO (test code = 2234) 1.5 RATIO BILIRUBIN, TOTAL (test code = 2207) 0.3 MG/DL ALKALINE PHOSPHATASE (test code = 2204) 79 U/L AST (test code = 2218) 17 U/L ALT (test code = 2219) 26 U/L Marciano MatosLIPID [id number] 00:00:00* Test Item Value Reference Range Interpretation Comme nts CHOLESTEROL (test code = 2210) 212 MG/DL TRIGLYCERIDES (test code = 2232) 363 MG/DL HDL CHOLESTEROL (test code = 2220) 28 MG/DL CALC LDL CHOL (test code = 2237) 111 MG/DL RISK RATIO LDL/HDL (test cod e = 2238) 3.98 RATIO Marciano Calle CarloPSA, [id number] 00:00:00* Test Item Value Reference Range Interpretation Comme nts PSA, TOTAL (test code = 2606) 0.36 NG/ML Marciano MatosCOMPREHENSIVE METABOLIC [id number] 00:00:00* Test Item Value Reference Range Interpretation Comme nts GLUCOSE (test code = 2217) 115 MG/DL BUN (test code = 2208) 13 MG/DL CREATININE (test code = 2214) 0.90 MG/DL eGFR AMER. (test cod e = 35229) 122 ML/MIN/1.73 eGFR NON- AMER. (test code = 24565) 105 ML/MIN/1.73 CALC BUN/CREAT (test code = 2235) 14 RATIO SODIUM (test code = 2231) 141 MEQ/L POTASSIUM (test code = 2228) 4.5 MEQ/L CHLORIDE (test code = 2215) 101 MEQ/L CARBON DIOXIDE (test code = 2206) 17 MEQ/L CALCIUM (test code = 2209) 9.5 MG/DL PROTEIN, TOTAL (test code = 2229) 7.4 G/DL ALBUMIN (test code = 2201) 4.4 G/DL CALC GLOBULIN (test code = 2240) 3.0 G/DL CALC A/G RATIO (test code = 2234) 1.5 RATIO BILIRUBIN, TOTAL (test code = 2207) 0.3 MG/DL ALKALINE PHOSPHATASE (test code = 2204) 79 U/L AST (test code = 2218) 17 U/L ALT (test code = 2219) 26 U/L Marciano MatosLIPID [id number] 00:00:00* Test Item Value Reference Range Interpretation Comme nts CHOLESTEROL (test code = 2210) 212 MG/DL TRIGLYCERIDES (test code = 2232) 363 MG/DL HDL CHOLESTEROL (test code = 2220) 28 MG/DL CALC LDL CHOL (test code = 2237) 111 MG/DL RISK RATIO LDL/HDL (test cod e = 2238) 3.98 RATIO Marciano MatosPSA, [id number] 00:00:00* Test Item Value Reference Range Interpretation Comme nts PSA, TOTAL (test code = 2606) 0.36 NG/ML Marciano MatosCOMPREHENSIVE METABOLIC [id number] 00:00:00* Test Item Value Reference Range Interpretation Comme nts GLUCOSE (test code = 2217) 115 MG/DL BUN (test code = 2208) 13 MG/DL CREATININE (test code = 2214) 0.90 MG/DL eGFR AMER. (test cod e = 20148) 122 ML/MIN/1.73 eGFR NON- AMER. (test code = 47620) 105 ML/MIN/1.73 CALC BUN/CREAT (test code = 2235) 14 RATIO SODIUM (test code = 2231) 141 MEQ/L POTASSIUM (test code = 2228) 4.5 MEQ/L CHLORIDE (test code = 2215) 101 MEQ/L CARBON DIOXIDE (test code = 2206) 17 MEQ/L CALCIUM (test code = 2209) 9.5 MG/DL PROTEIN, TOTAL (test code = 2229) 7.4 G/DL ALBUMIN (test code = 2201) 4.4 G/DL CALC GLOBULIN (test code = 2240) 3.0 G/DL CALC A/G RATIO (test code = 2234) 1.5 RATIO BILIRUBIN, TOTAL (test code = 2207) 0.3 MG/DL ALKALINE PHOSPHATASE (test code = 2204) 79 U/L AST (test code = 2218) 17 U/L ALT (test code = 2219) 26 U/L Marciano MatosLIPID [id number] 00:00:00* Test Item Value Reference Range Interpretation Comme nts CHOLESTEROL (test code = 2210) 212 MG/DL TRIGLYCERIDES (test code = 2232) 363 MG/DL HDL CHOLESTEROL (test code = 2220) 28 MG/DL CALC LDL CHOL (test code = 2237) 111 MG/DL RISK RATIO LDL/HDL (test cod e = 2238) 3.98 RATIO Marciano MatosCBC W/AUTO [id number] 00:00:00* Test Item Value Reference Range Interpretation Comme nts WBC (test code = 1001) 5.3 K/UL RBC (test code = 1002) 4.37 M/UL HEMOGLOBIN (test code = 1003) 13.3 G/DL HEMATOCRIT (test code = 1004) 39.2 % MCV (test code = 1005) 89.7 fL MCH (test code = 1006) 30.4 PG MCHC (test code = 1007) 33.9 G/DL RDW (test code = 1038) 12.4 % NEUTROPHILS (test code = 1008) 53.4 % LYMPHOCYTES (test code = 1010) 35.8 % MONOCYTES (test code = 1011) 8.3 % EOSINOPHILS (test code = 1012) 2.1 % BASOPHILS (test code = 1013) 0.4 % PLATELET COUNT (test code = 1015) 339 K/UL Marciano MatosHEMOGLOBIN [id number] 00:00:00* Test Item Value Reference Range Interpretation Comme nts HEMOGLOBIN A1c (test code = 95012) 6.3 % Marciano [id number] 00:00:00* Test Item Value Reference Range Interpretation Comme nts TSH (test code = 2821) 2.3 UIU/ML Marciano Calle AustinCBC W/AUTO [id number] 00:00:00* Test Item Value Reference Range Interpretation Comme nts WBC (test code = 1001) 5.3 K/UL RBC (test code = 1002) 4.37 M/UL HEMOGLOBIN (test code = 1003) 13.3 G/DL HEMATOCRIT (test code = 1004) 39.2 % MCV (test code = 1005) 89.7 fL MCH (test code = 1006) 30.4 PG MCHC (test code = 1007) 33.9 G/DL RDW (test code = 1038) 12.4 % NEUTROPHILS (test code = 1008) 53.4 % LYMPHOCYTES (test code = 1010) 35.8 % MONOCYTES (test code = 1011) 8.3 % EOSINOPHILS (test code = 1012) 2.1 % BASOPHILS (test code = 1013) 0.4 % PLATELET COUNT (test code = 1015) 339 K/UL Marciano MatosHEMOGLOBIN [id number] 00:00:00* Test Item Value Reference Range Interpretation Comme nts HEMOGLOBIN A1c (test code = 72923) 6.3 % Marciano Calle [id number] 00:00:00* Test Item Value Reference Range Interpretation Comme nts TSH (test code = 2821) 2.3 UIU/ML Marciano MatosCBC W/AUTO [id number] 00:00:00* Test Item Value Reference Range Interpretation Comme nts WBC (test code = 1001) 5.3 K/UL RBC (test code = 1002) 4.37 M/UL HEMOGLOBIN (test code = 1003) 13.3 G/DL HEMATOCRIT (test code = 1004) 39.2 % MCV (test code = 1005) 89.7 fL MCH (test code = 1006) 30.4 PG MCHC (test code = 1007) 33.9 G/DL RDW (test code = 1038) 12.4 % NEUTROPHILS (test code = 1008) 53.4 % LYMPHOCYTES (test code = 1010) 35.8 % MONOCYTES (test code = 1011) 8.3 % EOSINOPHILS (test code = 1012) 2.1 % BASOPHILS (test code = 1013) 0.4 % PLATELET COUNT (test code = 1015) 339 K/UL Marciano MatosHEMOGLOBIN [id number] 00:00:00* Test Item Value Reference Range Interpretation Comme nts HEMOGLOBIN A1c (test code = 17615) 6.3 % Marciano [id number] 00:00:00* Test Item Value Reference Range Interpretation Comme nts TSH (test code = 2821) 2.3 UIU/ML Marciano Matos Notes Date/Time Note Provider Source Marciano Jernigan [facility]2024-09-20 00:00:00 Marciano Jernigan [facility]2024-06-11 00[facility]00[facility]
--- NOTE | 2024-07-08 09:01 | RAD REPORT ---
EXAMINATION: TWO VIEW CHEST XR CLINICAL INDICATION: SOB TECHNIQUE: 2 views of the chest was performed. COMPARISON: No prior exam. FINDINGS: The lungs are well inflated and clear. The heart is normal in size. No displaced fractures evident. IMPRESSION: No acute or significant abnormalities.
--- NOTE | 2024-07-08 09:01 | RAD REPORT ---
EXAMINATION: XR RIGHT SHOUDLER CLINICAL INDICATION: Male, 49 years old. SOB TECHNIQUE: Multiple views of the right shoulder were obtained. COMPARISON: No prior exam. FINDINGS: Mild AC joint and glenohumeral joint arthritic changes. No fracture or dislocation seen.
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
--- NOTE | 2024-07-08 09:23 | ER ---
Nurse's Notes [facility] Name: Kelechi Gandhi Age: 49 yrs Sex: Male : 1975 Arrival Date: 07/08/2024 Time: 08:09 Bed 20 Private MD: Diagnosis: Pain in right shoulder;Osteoarthritis, unspecified site Presentation: 07/08 08:32 Chief complaint: Patient states: burning sensation to the right under arm that radiates kc6 to his shoulder blade x4-5 days. Coronavirus screen: At this time, the client does not indicate any symptoms associated with coronavirus-19. Ebola Screen: No symptoms or risks identified at this time. Initial Sepsis Screen: Does the patient meet any 2 criteria? No. Patient's initial sepsis screen is negative. Does the patient have a suspected source of infection? No. Patient's initial sepsis screen is negative. Risk Assessment: Do you want to hurt yourself or someone else? Patient reports no desire to harm self or others. Onset of symptoms was July 08, 2024. 08:32 Method Of Arrival: Ambulatory kc6 08:32 Acuity: RUEL 4 kc6 Triage Assessment: 08:33 General: Appears in no apparent distress. comfortable, well groomed, well developed, kc6 Behavior is calm, cooperative, appropriate for age. Pain: Complains of pain in right scapular area, right lateral anterior chest, right lateral posterior chest and right axilla Pain currently is 4 out of 10 on a pain scale. Quality of pain is described as burning, dull, sharp, Is intermittent. EENT: No signs and/or symptoms were reported regarding the EENT system. Neuro: Level of Consciousness is awake, alert, obeys commands, Oriented to person, place, time, situation, Appropriate for age. Cardiovascular: Capillary refill < 3 seconds. Respiratory: Airway is patent Trachea midline Respiratory effort is even, unlabored, Respiratory pattern is regular, symmetrical. GI: No signs and/or symptoms were reported involving the gastrointestinal system. : No signs and/or symptoms were reported regarding the genitourinary system. Derm: No signs and/or symptoms reported regarding the dermatologic system. Skin is intact, is healthy with good turgor, Skin is pink, warm \T\ dry. Musculoskeletal: No signs and/or symptoms reported regarding the musculoskeletal system. Circulation, motion, and sensation intact. Capillary refill < 3 seconds, Range of motion: intact in all extremities. Historical: - Allergies: 08:33 Lisinopril; kc6 - PMHx: 08:33 Diabetes - NIDDM; High Cholesterol; Hypertension; kc6 - Immunization history:: Adult Immunizations up to date. - Infectious Disease History:: Denies. - Social history:: Smoking status: Patient denies any tobacco usage or history of. Screenin:37 [facility] ED Fall Risk Assessment (Adult) History of falling in the last 3 months, kc6 including since admission No falls in past 3 months (0 pts) Confusion or Disorientation No (0 pts) Intoxicated or Sedated No (0 pts) Impaired Gait No (0 pts) Mobility Assist Device Used No (0 pt) Altered Elimination No (0 pt) Score/Fall Risk Level 0 - 2 = Low Risk Oriented to surroundings. Abuse screen: Denies threats or abuse. Denies injuries from another. Nutritional screening: No deficits noted. Tuberculosis screening: No symptoms or risk factors identified. Assessment: 08:36 Reassessment: please see triage. kc6 09:42 Reassessment: Patient appears in no apparent distress at this time. No changes from kc6 previously documented assessment. Patient and/or family updated on plan of care and expected duration. Pain level reassessed. Patient is alert, oriented x 3, equal unlabored respirations, skin warm/dry/pink. Vital Signs: 08:32 BP 153 / 99; Pulse 51; Resp 15 S; Temp 98(TE); Pulse Ox 99% on R/A; Pain 4/10; kc6 09:43 BP 118 / 82; Pulse 49; Resp 18 S; Pulse Ox 99% on R/A; kc6 08:32 Pain Scale: Adult 6 ED Course: 08:14 Patient arrived in ED. sj2 08:18 Phoenix Ojeda DO is Attending Physician. ms3 08:25 Julieta Roman, RN is Primary Nurse. kc6 08:33 Triage completed. kc6 08:33 Arm band placed on. kc6 08:36 Patient has correct armband on for positive identification. Placed in gown. Bed in low kc6 position. Call light in reach. Side rails up X 1. Adult w/ patient. Pulse ox on. NIBP on. Door closed. Noise minimized. Lights dimmed. Pillow given. 08:36 Patient maintains SpO2 saturation greater than 95% on room air. kc6 09:01 Chest Pa And Lat (2 Views) In Process Unspecified. EDMS 09:01 RAD In Process Unspecified. EDMS 09:43 No provider procedures requiring assistance completed. Patient did not have IV access kc6 during this emergency room visit. Administered Medications: 09:28 Drug: Dexamethasone IM 10 mg IM once Route: IM; Site: right deltoid; kc6 09:42 Follow up: Response: No adverse reaction kc6 09:28 Drug: Cyclobenzaprine PO 10 mg PO once Route: PO; kc6 09:42 Follow up: Response: No adverse reaction kc6 Medication: 09:43 VIS not applicable for this client. kc6 Outcome: :23 Discharge ordered by . ms3 09:43 Discharged to home ambulatory, with significant other, kc6 09:43 Condition: good 09:43 Discharge instructions given to patient, significant other, Instructed on discharge instructions, follow up and referral plans. no drinking with medication, no driving heavy equipment, medication usage, Demonstrated understanding of instructions, follow-up care, medications, Prescriptions given X 1, 09:43 Patient left the ED. kc6 Signatures: Dispatcher [employer] EDMS Phoenix Ojeda DO DO ms3 Julieta Roman RN RN kc6 Gypsy Ryan2
[2024-07-08] MEDS ORDERED: CYCLOBENZAPRINE 10 MG TAB ONE (09:24)
[2024-07-08] MEDS ORDERED: dexAMETHasone 10 MG/ML VIAL ONE (09:24)
[2024-07-08 09:47] VITALS: TEMP 98; O2SAT 99
[2024-07-08 09:48] VITALS: BP 118/82
== END 2024-07-08 09:43 | disposition home or self-care (01) ==
LOC: ER 08:09
DX: M19.011 Primary osteoarthritis, right shoulder (principal)
CPT/HCPCS: 71046; 96372; 99284; J1100